=== PATIENT | male | born 1960 | race Caucasian/White ===

== ENCOUNTER → 2018-10-24 09:54 | Outpatient (CLI) | payer MEDICARE, SELFPAY ==
--- NOTE | 2018-10-24 10:20 | MRI_ITS ---
STUDY: MRI LEFT ANKLE WITHOUT CONTRAST REASON FOR EXAM: Left ankle pain, anterior ankle lump for 2 months, aspiration 2 weeks ago. TECHNIQUE: Standardized fat and water weighted pulse sequences were obtained in all 3 orthogonal planes. COMPARISON: None. FINDINGS: There is a soft tissue mass in the subcutis adipose space at the anterior medial aspect of the ankle measuring approximately 2.9 x 2.1 x 5.4 cm (AP x transverse x length). The mass is mostly intermediate in signal intensity on T1 sequences (T1 sagittal images 4-8) and demonstrates a thick wall on T2 sequences with hyperintense and hypointense central signal on T2 sequences (T2 axial images 11-16). There is mild edema in the adjacent subcutis adipose space. Normal posterior tibialis tendon. Normal flexor digitorum longus tendon. Normal flexor hallucis longus tendon. Normal peroneus longus and brevis tendons. Normal tibialis anterior tendon. Normal extensor hallucis longus tendon. Normal extensor digitorum longus tendons. Normal Achilles tendon and teno-osseous insertion. Normal plantar fascia. Normal plantar calcaneal tubercles. Normal intrinsic muscles of the rearfoot. Normal distal tibiofibular syndesmotic ligamentous complex. Normal lateral ligamentous complex. Normal subtalar ligaments and sinus tarsi. Normal deltoid ligamentous complexes. Normal plantar calcaneonavicular (spring) ligament. There is mild subchondral cystic change of the posterior aspect of the distal tibia (inversion recovery sagittal images 11-13). Normal talar dome. Normal subtalar articulations. Normal talonavicular articulation. Normal calcaneocuboid articulation. Normal navicular-cuneiform articulations. MRI/Lower Ext Joint Only (Routine) IMPRESSION: Soft tissue mass with a thick rim in the subcutis adipose space at the anteromedial aspect of the ankle without specific imaging characteristics. Electronically Signed: Nicko Suarez MD at 14:34 EDT Tel , Service support ,
[2018-10-24 11:03] LABS: Erythrocyte Sedimentation Rate 32 mm/hr (0-20)
[2018-10-24 11:06] LABS: Absolute Lymphocyte Count 1.34 X10^3/uL (0.83-4.51); Basophil# 0.03 X10^3/uL; Basophil% 0.6 % (0-1); Eosinophil# 0.18 X10^3/uL; Eosinophils% 3.6 % (0-5); Hematocrit 41.1 % (40-54); Hemoglobin 13.1 g/dL (13.0-16.5); Lymphocyte # 1.34 X10^3/ul (4.0); Mean Corp Hgb Conc 31.9 g/dL (32-36); Mean Corpuscular Hgb 26.2 pg (27.0-32.0); Mean Corpuscular Volume 82.2 fL (80-94); Mean Platelet Vol. 9.5 fl (6.2-12.0); Monocyte# 0.41 X10^3/uL; Monocyte% 8.2 % (0-10); NRBC Flagged by Analyzer 0 % (0-5); Neutrophil # 2.99 X10^3/uL (2.7-7.7); Neutrophil % 60.2 % (47-70); Platelet Count 245 K/mm3 (150-450); RBC Distribution Width CV 13.2 % (11.6-14.6); RBC Distribution Width SD 39.8 fl (35.1-43.9)
[2018-10-24 11:31] LABS: CRP 6.64 mg/L (0.0-3.0)
== END ==
PROVIDERS: Family Provider Internal Medicine; PCP Internal Medicine; Referring Provider Orthopaedic Surgery; Visit Provider Orthopaedic Surgery
DX: M25.572 Pain in left ankle and joints of left foot (principal)
CPT/HCPCS: 36415; 73721; 85025; 85652; 86140

== ENCOUNTER 2021-04-14 17:45 | Inpatient (IN) | payer MEDICARE, SELFPAY ==
[2021-04-14 18:12] VITALS: BP 177/75; PULSE 84; RESP 18; TEMP 36.9; O2SAT 92; BMI 33.9
[2021-04-14] MEDS: Heparin Injection (Vial) 5,000 UNIT/ML VIAL 5000 UNIT SC (21:02)
[2021-04-14] MEDS: Gabapentin 300 MG Capsule PO (21:03)
[2021-04-14] MEDS: Atorvastatin Calcium 80 MG Tablet PO (21:04)
[2021-04-14 21:12] VITALS: BP 159/86; PULSE 86; RESP 16; TEMP 36.1; O2SAT 98
[2021-04-14 21:30] VITALS: O2SAT 98
[2021-04-14 21:45] VITALS: BMI 33.9
[2021-04-14 22:00] VITALS: PULSE 82; RESP 17; O2SAT 96
--- NOTE | 2021-04-15 03:42 | NURSING ---
Pt resting comfortably in room and oriented to Rehab Routine. Pt has congenital malformed left leg and prosthesis in room. Pt has wallet with money and advised by RN to return wallet to family while here.
[2021-04-15 06:00] VITALS: BP 142/88; BP 148/83; BP 170/93; PULSE 82; PULSE 83; PULSE 93
[2021-04-15 07:43] VITALS: BP 156/89; PULSE 79; RESP 16; TEMP 36.7; O2SAT 96
[2021-04-15] MEDS: Clopidogrel Bisulfate 75 MG Tablet PO (08:09)
[2021-04-15] MEDS: Aspirin 81 MG TAB.CHEW PO (08:09)
[2021-04-15] MEDS: Lisinopril 10 MG Tablet PO (08:09)
[2021-04-15] MEDS: Heparin Injection (Vial) 5,000 UNIT/ML VIAL 5000 UNIT SC (08:09)
--- NOTE | 2021-04-15 11:59 | HP.PCM_ITS ---
HPI - General General Date of Admission: 04/14/21 Date of Service: 04/15/21 Chief Complaint: Debility due to CVA. 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 the sx resolved and he went to meet a friend. At about 6 PM he noticed that he was slurring his speech. He decided to go the the ED and arrived at about 8 PM. He had a R facial droop and slurred speech upon arrival and the NIHSS was 1. BP at arrival to the ED was 204/115. A NC CT brain showed no acute findings. He was admitted to the hospital for observation. Overnight the sx progressed and he developed weakness again in the RUE. the neurologist recommended loading him with Plavix and obtaining an MRI. The MRI showed a small acute infarct in the left flores radiata extending slightly the left external capsule and lentiform nuclei. There was also a chronic lacunar infarct involving the left caudate head. Significant lab at [facility] included a low HGB of 12.1 with a low MCV at 78. The LDL was 109 and the HDL was 50. TRIG were 119. He was seen in consultation by PT/OT and ST and transfer to an acute inpat rehab unit was recommended. He was agreeable and he was transferred to the acute inpt rehab unit at [facility] on 04/14/21 for 3 hours of therapy daily to restore function at or near his prior level of function. He is a and he lives by himself. He has a step daughter who lives in [place] and he has no children of his own. ECHO at [facility] showed an EF of 55-60% with no regional wall motion abnormalities. The LA was mildly dilated and the bubble study was negative. there was impaired relaxation of the ventricle in diastole. Carotid US showed less than 50% stenosis in the proximal BL ICA's. [facility] Medical History (Updated 04/15/21 @ 15:[address] Puja Marie DO) Congenital deformity of left hip joint Fracture, clavicle Hypertension Lacunar infarction Obesity (BMI 30.0-34.9) Stroke/cerebrovascular accident Tobacco dependence due to cigarettes, in remission Villous adenoma Home Medications gabapentin 300 mg PO QHS 04/09/15 [History Last Taken Unknown] acetaminophen 650 mg PO Q4H PRN 04/14/21 [History Last Taken Unknown] aspirin 81 mg PO DAILY 04/14/21 [History Last Taken Unknown] atorvastatin 80 mg PO QHS 04/14/21 [History Last Taken Unknown] clopidogrel [Plavix] 75 mg PO DAILY 04/14/21 [History Last Taken Unknown] heparin (porcine) 5,000 unit SUBCUT Q12H 04/14/21 [History Last Taken Unknown] lisinopril 10 mg PO DAILY 04/14/21 [History Last Taken Unknown] Allergy/AdvReac Type Severity Reaction Status Date / Time amoxicillin trihydrate Allergy Hives Verified 04/09/15 14:15 [From Augmentin] potassium clavulanate Allergy Hives Verified 04/09/15 14:15 [From Augmentin] Family History (Updated 04/15/21 @ 15:[address] Puja Marie DO) Father Cancer CAD (coronary artery disease) Uncle Cancer Brother CVA (cerebral vascular accident) Mother CAD (coronary artery disease) Surgical History (Updated 04/15/21 @ 15:[address] Puja Marie DO) History of bowel resection History of rotator cuff surgery Social History (Updated 04/15/21 @ 15:[address] Puja Marie DO) household members: none and other details: lives alone. 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 1 PPD. alcohol intake: current alcohol intake frequency: a few times a week details: he gets a 12 pack of beer a week and shares with friends substance use type: does not use ROS Constitutional Constitutional: Reports fatigue and weakness; Denies anorexia, change in weight, chills, fever(s) or night sweats Eyes Eyes: Reports change in vision and other Details: Recently has noticed he has some floaters. Denies any loss of vision. ; Denies double vision, eye pain, itchy eyes or loss of vision ENT HEENT: Reports nasal congestion and other Details: has trouble chewing since the stroke ; Denies abnormal hearing, dysphagia, headache(s), hearing loss or sore throat Cardiovascular Cardiovascular: Reports palpitations; Denies chest pain, dyspnea on exertion, edema, lightheadedness, orthopnea, paroxysmal nocturnal dyspnea or syncope Respiratory/Chest Respiratory/Chest: Denies cough, dyspnea, hemoptysis, shortness of breath at rest, shortness of breath with exertion or wheezing Gastrointestinal Gastrointestinal: Denies abdominal pain, constipation, diarrhea, dyspepsia, hematemesis, hematochezia, nausea or vomiting Genitourinary Genitourinary: Denies dysuria, hematuria, nocturia, urinary frequency, urinary hesitancy, urinary incontinence or urinary urgency Musculoskeletal Musculoskeletal: Reports other Details: R shoulder pain ; Denies back pain, joint pain, joint swelling or neck pain Integumentary Integumentary: Reports dry skin; Denies jaundice, rash or wounds Neurologic Neurologic: Reports abnormal gait, dizziness and focal weakness; Denies confusion, disequilibrium, headache(s), paresthesias, seizures, sensory deficit or tremor(s) Psychiatric Psychiatric: Denies anxiety, depression, homicidal ideation or suicidal ideation Endocrine Endocrinology: Denies change in body appearance, polydipsia or polyuria Hematologic/Lymphatic Hematologic/Lymphatic: Denies easy bleeding, easy bruising or lymphadenopathy Allergic/Immunologic Allergic/Immunologic: Denies rhinitis, eczemia or asthma Vital Signs Vital Signs Vital Signs: 04/14/21 18:12 04/14/21 21:12 04/14/21 21:30 Temperature 98.4 F 97.0 F L Temperature Source Oral Oral Pulse Rate 84 86 Pulse Rate [Lying] Pulse Rate [Sitting (for 1 minute prior to obtaining)] Pulse Rate [Standing (for 1 minute prior to obtaining)] Respiratory Rate 18 16 Respiratory Effort Respiratory Depth Respiratory Pattern Blood Pressure 177/75 H 159/86 H Blood Pressure [Lying] Blood Pressure [Sitting (for 1 minute prior to obtaining)] Blood Pressure [Standing (for 1 minute prior to obtaining)] Blood Pressure Mean 109 110 Blood Pressure Mean [Lying] Blood Pressure Mean [Sitting (for 1 minute prior to obtaining)] Blood Pressure Mean [Standing (for 1 minute prior to obtaining)] Blood Pressure Source Monitor Monitor Blood Pressure Position Sitting Sitting Blood Pressure Location Left Arm Left Arm Pulse Ox 92 98 98 Oxygen Delivery Method Room Air Room Air Room Air 04/14/21 22:00 04/15/21 06:00 04/15/21 07:43 Temperature 98.0 F Temperature Source Temporal Pulse Rate 82 79 Pulse Rate [Lying] 83 Pulse Rate [Sitting (for 1 minute prior to obtaining)] 82 Pulse Rate [Standing (for 1 minute prior to obtaining)] 93 Respiratory Rate 17 16 Respiratory Effort Normal Non-Labored Respiratory Depth Normal Respiratory Pattern Normal Blood Pressure 156/89 H Blood Pressure [Lying] 148/83 H Blood Pressure [Sitting (for 1 minute prior to obtaining)] 142/88 H Blood Pressure [Standing (for 1 minute prior to obtaining)] 170/93 H Blood Pressure Mean 111 Blood Pressure Mean [Lying] 104 Blood Pressure Mean [Sitting (for 1 minute prior to obtaining)] 106 Blood Pressure Mean [Standing (for 1 minute prior to obtaining)] 118 Blood Pressure Source Monitor Blood Pressure Position Semi-Fowlers Blood Pressure Location Left Arm Pulse Ox 96 96 Oxygen Delivery Method Room Air Room Air Weight Weight: 210 lb Body Mass Index (BMI) 33.9 Indicators for Scoring Admitted with or Primary Diagnosis of CVA/Stroke: Yes Hx of CVA/Stroke: Yes Modified [place] Score MRS Score at time of Evaluation: 4-Moderate/severe disability NIHSS NIHSS 1a. Level of Consciousness: Alert; keenly responsive 1b. LOC Questions: Answers BOTH questions correctly. 1c. LOC Commands: Performs both tasks correctly. 2. Best Gaze: Normal 3. Visual: No visual loss 4. Facial Palsy: Minor paralysis (flattened nasolabial fold, asymmetry on smiling) 5a. Left Arm: No drift; arm holds 90 (or 45) degrees for full 10 seconds 5b. Right Arm: No movement 6a. Left Leg: No drift; leg holds 30-degree position for full 5 seconds 6b. Right Leg: Drift; leg falls by the end of 5-seconds, but does not hit bed 7. Limb Ataxia: Absent 8. Sensory: Normal; no sensory loss (Having trouble finding words) 9. Best Language: [id number] aphasia; (having some trouble with word finding) 10. Dysarthria: [id number] dysarthria; 11. Extinction and Inattention: No abnormality Total: 8 Stroke Questions Stroke Team Activated: No Physical Exam Const alert, oriented x3, no apparent distress and well nourished General Appearance: cooperative and well developed HEENT normocephalic, head/scalp atraumatic, hearing grossly normal bilaterally and moist oral mucous membranes Eyes PERRL, EOMs intact bilaterally, conjunctivae normal and no scleral icterus Neck supple, no JVD, No nodes and no carotid bruits General: trachea midline Lymph Lymphatic: no lymphadenopathy noted Resp normal respiratory effort and clear to auscultation bilaterally Resp Narrative: able to speak in complete sentences Cardio regular rate, regular rhythm, S1 normal heart sound, S2 normal heart sound, no murmurs, no rub and no gallops Cardio Narrative: no ectopy GI normal to inspection, nondistended, normoactive bowel sounds, soft to palpation and non-tender GI Narrative: no guarding with palpation Extremity no clubbing, cyanosis or edema and no calf tenderness Extremity Narrative: The Left leg is atrophied and short due to congenital deformity and he wears a prosthesis Skin General Skin Exam: Negative for no breakdown Rashes: No rashes noted Wounds: Negative for wounds noted Neuro Neuro Narrative: See the NIHSS. R facial droop, no movement of the RUE and drift with the RLE. No sensory loss and no ataxia. Dysarthria is mild and he has occasional trouble with word finding. Psych thought process normal, cooperative, affect normal, denies homicidal ideation and denies suicidal ideation Psych Narrative: He denies feeling depressed although the therapists told me that he was crying when talking about his 's passing with them......he did not cry with me. Tells me he is occasionally anxious when he is thinking about a problem he is trying to work out and maybe he has trouble sleeping 1 night a week because of this. Has never been treated for depression. Has take Klonopin for sleep in the past. Appearance: appropriate Assessment & Plan Assessment/Plan (1) Physical debility: (2) Stroke/cerebrovascular accident: (3) Facial droop: (4) Cognitive dysfunction: (5) Right hemiparesis: (6) Microcytic anemia: (7) Dyslipidemia: (8) Hypertension: (9) Glucose intolerance (impaired glucose tolerance): (10) Obesity (BMI 30.0-34.9): (11) Diastolic dysfunction: PLAN: PLAN PT for gait stability OT for ADL's ST for evaluation Analgesics as needed Bowel protocol Fall precautions Assess for Anxiety/Depression GI prophylaxis not necessary......no complaints and no hx of PUD DVT prophylaxis with Lovenox 40 mg subcu once daily Follow up with Dr. Byrne and neurology following DC from IP Rehab AM lab including CMP, CBC, Mag and Phos is just now being drawn? Iron, TIBC, ferritin Overnight trending pulse ox. Multiple RF's for HADLEY including neck circumference of 42 cm, HTN, Age > 50, male. His in 2012 and he lives alone so he does not know if he snores. Obtain a problem list, med list and the last progress note from Dr. Jenny Byrne Check a Hemoccult stool - he tells me that his last colonoscopy was a few years ago and he has never had any polyps on any of the follow up procedures. He denies any hx of PUD. Charges/Coding Visit Charges Inpatient E&M: 96025 Init Hosp L3
--- NOTE | 2021-04-15 12:02 | REHABEVAL_ITS ---
Admission Information Primary Diagnosis:: Post stroke debility Status Changes from Prescreening?: No changes Identified Actual Problem List:: Cognitve Impr/Memory Loss, Bladder Incontinence, Mobility Impaired, Self Care Deficit, Ineffective Communication, Know.Dfct/Disease Process, Know.Dfct of Medicaitons, BP, Hypertension and Alteration-Leisure Activ. Potential Problem List:: DVT, Bleeding, Infection, UTI, Aspiration, Falls, Skin Integrity and Depression Risk of Complications DVT: LMWH and GLADYS Hose Bleeding: Monitor Lab Values, Nursing to Teach Precautions for anti-coagulation therapy., Wound, if applicable, to be assessed every shift. and Stroke patients assessed for lethargy or change in status. Infection: Clinical Staff to Monitor for S/S of infection: and S/S of infection include fever, redness, warmth, etc. Urinary Tract Infection: Monitor for frequency, burning, discomfort, or incontinence. and Nursing will obtain urine sample for urinalysis and C&S when ordered. Aspiration: Clinical staff will monitor for coughing, drooling, congestion., Speech will evaluate swallowing and dsyphasia. and Nursing will monitor patient swallowing during meals. Falls: Patient will be evaluated for Fall Precautions and Patient will be placed on Fall Precautions as indicated per protocol. Skin Breakdown: Nursing will assess skin daily using assessment tool. and Nursing will place on Skin Breakdown Precautions as indicated. Pain: Clinical staff will assess patient's pain level per protocol., Medications will be given, if needed, and the pain level reassessed. and Other methods: Massage, distraction, decrease stimulus, etc. used PRN. Plan of Care Patient requires physician specializing in physical medicine and rehab oversight to provide close medical supervision of rehab issues including: Pain Management, Sleep Problems, Bowel and Bladder, Medical and co-morbidity Management, DVT prophylaxis, Rehabilitation Leadership and Coordination of treatment team Patient needs Physical Therapy: For a minimum of 1 hour and At least 5 out of 7 days Patient needs Physical Therapy to improve:: Mobility, Strengthening, Transfers, Stretching, ROM, Endurance, Stairs, Gait and Balance Patient needs Occupational Therapy: For a minimum of 1 hour and At least 5 out of 7 days Patient needs Occupational Therapy to improve ADL's incl.: Eating, Grooming, Bathing, Dressing, Toileting, Toilet transfers, Community Reintegration, Higher functioning activities, Household tasks, Adaptive Equipment, Splinting and Other activities as determined Patient requires speech therapy: For a minimum of 1 hour and At least 5 out of 7 days Patient requires speech therapy for: Swallowing, Cognition, Language Skills and Compensatory Strategies Patient requires 24/ Rehabilitation Nursing for: Pain Issues, Identifying and preventing risk factors, Monitoring and reporting current medical conditions, Assisting with ambulation, transfer, and all ADL's, Teaching patients about disease process and medications, Family teaching, Providing safe environment, Bowel and Bladder Issues, Skin integrity and Medication Management Patient needs Aircraft Engine Cylinder Mechanic/ Case Management for: Discharge Planning, Arranging Home Equipment or Services and Family Interventions Patient needs Dietary and Nutrition Services for: Adequate Nutrition, Nutritional Supplements and Nutritional Education Goals Patient will remain: free from falls Patient will perform bed mobility at: MOD I level of assist. Patient will complete transfers from bed to chair at: MOD I level of assist. Patient will ambulate: 100 feet (with a hemiwalker ) Patient will complete upper body dressing at: MOD I level of assist. Patient will complete lower body dressing at: MOD I level of assist. Patient will complete toileting at: MOD I level of assist. Patient will perform bathing at: MOD I level of assist. Patient will complete grooming at: MOD I level of assist. Patient will complete home management skills at: MOD I level of assist. Patient will achieve: - (2 steps to be able to enter his residence) Patient will have pain level of: of 3 or less Patient's skin will: remain intact Patient will receive: adequate nutrition. Discharge Planning Pt Prognosis for Sig. Practical Improv. w/in Reasonable Time: Good Estimated Length of stay (days): 8 Anticipated D/C Destination: Home with Home Health Was Preadmission Assessment Accurate?: Yes
[2021-04-15] MEDS: Menthol/Lanolin/Calamine/Znox 113 GM Tube 1 APPLIC TOPICAL (12:48)
[2021-04-15 15:02] VITALS: BMI 33.9
[2021-04-15 16:02] LABS: Absolute Lymphocyte Count 1.32 X10^3/uL (0.83-4.51); Basophil# 0.03 X10^3/uL; Basophil% 0.5 % (0-1); Eosinophil# 0.14 X10^3/uL; Eosinophils% 2.3 % (0-5); Hematocrit 39.2 % (40-54); Hemoglobin 12.8 g/dL (13.0-16.5); Lymphocyte # 1.32 X10^3/ul (0.83-4.51); Lymphocyte % 21.4 % (19-41); Mean Corp Hgb Conc 32.7 g/dL (32-36); Mean Corpuscular Hgb 26.4 pg (27.0-32.0); Mean Platelet Vol. 9.7 fl (6.2-12.0); Monocyte# 0.68 X10^3/uL; NRBC Flagged by Analyzer 0 % (0-5); Neutrophil # 3.98 X10^3/uL (2.7-7.7); Neutrophil % 64.3 % (47-70); Platelet Count 177 K/mm3 (150-450); RBC Distribution Width CV 13.7 % (11.6-14.6); RBC Distribution Width SD 40.2 fl (35.1-43.9); Red Blood Count 4.84 M/mm3 (4.6-6.2); White Blood Count 6.2 K/mm3 (4.4-11.0)
[2021-04-15 16:36] LABS: ALB/GLOB Ratio 1.1 RATIO (0.9-2.4); AST(SGOT) 35 U/L (15-37); Alanine Aminotransfer ALT/SGPT 45 U/L (16-61); Albumin, Serum 3.4 g/dL (3.2-5.0); Alkaline Phosphatase 84 U/L (45-117); Anion Gap 3 (5-15); BUN 17 mg/dL (7-18); BUN/Creat Ratio 24.3 RATIO (10-20); Calcium,Total 9.1 mg/dL (8.5-10.1); Chloride 110 mmol/L (98-107); EST Glomerular Filtration Rate 122 mL/min (>60); Est Glom Filt Rate - Afr Amer 147 mL/min (>60); Globulin 3.2 g/dL (2.2-4.2); Glucose 107 mg/dL (74-106); Magnesium 1.8 mg/dL (1.6-2.6); Phosphorus 3.9 mg/dL (2.5-4.9); Potassium 3.6 mmol/L (3.5-5.1); Protein, Total 6.6 g/dL (6.4-8.2); Sodium Level 141 mmol/L (136-145)
[2021-04-15 17:08] LABS: Ferritin 14 ng/mL (26-388); Iron 40 ug/dL (65-175); Iron Binding Capacity,Total 408 ug/dL (250-450); PERCENT IRON SATURATION 9.8 % (15.0-55.0)
[2021-04-15] MEDS: Atorvastatin Calcium 80 MG Tablet PO (20:43)
[2021-04-15] MEDS: Gabapentin 300 MG Capsule PO (20:43)
[2021-04-15] MEDS: Sodium Chloride 0.65% 1 SPRAY SPRAY.BTL 2 SPRAY NASAL (20:46)
[2021-04-15] MEDS: NYSTATIN 500,000 UNIT/5 ML UDC 500000 UNIT PO (20:59)
[2021-04-15 22:00] VITALS: BP 164/84; PULSE 98; RESP 16; TEMP 36.6; O2SAT 94
[2021-04-15 22:15] VITALS: O2SAT 95
[2021-04-15 22:55] VITALS: BMI 33.9
[2021-04-16 07:49] VITALS: BP 105/86; PULSE 81; RESP 16; TEMP 36.7; O2SAT 96
[2021-04-16 09:25] VITALS: O2SAT 93
[2021-04-16] MEDS: Senna/Docusate Sodium 1 Tablet 2 TABLET PO (09:29)
[2021-04-16] MEDS: Lisinopril 10 MG Tablet PO (09:30)
[2021-04-16] MEDS: Clopidogrel Bisulfate 75 MG Tablet PO (09:30)
[2021-04-16] MEDS: Aspirin 81 MG TAB.CHEW PO (09:30)
[2021-04-16] MEDS: NYSTATIN 500,000 UNIT/5 ML UDC 500000 UNIT PO ×2 (09:30→20:53)
[2021-04-16] MEDS: Enoxaparin 40 MG/0.4 ML Syringe SC (09:30)
[2021-04-16] MEDS: Menthol/Lanolin/Calamine/Znox 113 GM Tube 1 APPLIC TOPICAL ×2 (10:42→20:40)
[2021-04-16 12:25] VITALS: BMI 33.9
--- NOTE | 2021-04-16 14:24 | CASEMGMT ---
Social Work Met with patient for initial assessment. Pt confirmed full code. Pt wishes to have dtr be primary contact and involved in updates and DC plans. Pt would to complete AD to name dtr as HCPOA. SW to complete prior to DC as time allows. Pt reports this is his first stroke, but his brother has had two strokes prior. Pt states he drove himself to the hospital when having symptoms. Provided and explained stroke support group brochure and ongoing education provided at those meetings, such as calling 911 when have stroke symptoms. Pt agreed to be added to mailing list. Pt reports drinking 6-12 beers/week which is a decrease from detention a few years ago. pt reports drinking socially or alone at home mostly to heal his body pain. Pt reports to hx of tobacco and tried edible marijuana twice. Completed PHQ-9. Pt scored 11/27 which indicates mild depression. Explained mood changes and being tearful are common after a stroke and to express any changes to this worker or the Dr. Pt denied depression and alcohol resources at this time. Updated Dr on findings. Pt's goal is for pt to return home alone. He stressed his dtr works coater hand and lives about 30-40 minutes away and has no assistance in the home. If he cannot go home independently, he will need a SNF, but hoping to regain strength in RU then home. SW validated feelings and agreed to goals. SW to continue to follow for support and DC planning. Anne-Marie Ponce, DARNELL DIAMONDW
--- NOTE | 2021-04-16 15:03 | PCM.PROGNOTE ---
Subjective Subjective Afebrile VSS - BP's are erratic high last night and then 105/86 this morning. Will continue to monitor and in light of the recent CVA will allow mild elevations in BP for now. Maintaining appropriate oxygen saturation on RA Oral intake was only 840 yesterday. Discussed with nursing - no problems that need addressed - I spoke with the SW who told me that he was an alcoholic. He denies to me. Tells me he used to drink a lot more in his younger days but now he does not drink everyday and he only occasionally drinks alone at home. He denies drinking to go to sleep. Reviewed the PT/OT/ST notes Medication list reviewed. Tells me that he did not sleep very well last night and he is requesting medication. Tells me that the trazodone he got at the previous hospital only worked the first night and did not help after that. He takes Klonopin on occasion at home .......only if he has not slept for 3-4 nights in a row. He is also c/o reflux today...after pasta with sauce at lunch. He has been taking Prevacid at home for the past few years. He denies odynophagia and does not feel as though food gets stuck on the way down. He denies epigastric pain and also denies any hx of PUD. He started drinking a lot of coffee not too long ago in an effort to lose weight....he gave up drinking soda. He denies CP, SOB, calf pain, cough, dysuria, lightheadedness. All lab was personally reviewed and he is iron deficient. The heme stool was negative. He tells me that he regularly gives blood and the last time (less than 2 months ago) he gave a powerpak. With the Prevacid everyday he may not be able to absorb the iron in his diet. Objective Data Objective Data Vital Signs: Vital Signs Temp Pulse Resp BP Pulse Ox 98.1 F 81 16 105/86 H 93 04/16/21 07:49 04/16/21 07:49 04/16/21 07:49 04/16/21 07:49 04/16/21 09:25 Oxygen Delivery Method Room Air Weight: 209 lb 15.986 oz Body Mass Index (BMI) 33.9 Intake & Output: Intake and Output for Last 24 Hours 04/14/21 04/15/21 04/16/21 23:59 23:59 23:59 Intake Total 240 / 240 840 / 840 510 / 510 Output Total 250 / 450 1775 / 1775 550 / 550 Balance -10 / -210 -935 / -935 -40 / -40 Lab / Micro Data Result Diagrams: 04/15/21 15:50 04/15/21 15:50 Labs: Laboratory Results - last 24 hr 04/15/21 15:50: WBC 6.2, RBC 4.84, Hgb 12.8 L, Hct 39.2 L, MCV 81.0, MCH 26.4 L, MCHC 32.7, RDW Std Deviation 40.2, RDW Coeff of Mazin 13.7, Plt Count 177, MPV 9.7, Immature Gran % (Auto) 0.500, Neut % (Auto) 64.3, Lymph % (Auto) 21.4, Morris % (Auto) 11.0 H, Eos % (Auto) 2.3, Baso % (Auto) 0.5, Absolute Neuts (auto) 4.0, Absolute Lymphs (auto) 1.32, Nucleated RBC % 0 04/15/21 15:50: Sodium 141, Potassium 3.6, Chloride 110 H, Carbon Dioxide 28.0, Anion Gap 3 L, BUN 17, Creatinine 0.70, Estim Creat Clear Calc 100.00, Est GFR (MDRD) Af Amer 147, Est GFR (MDRD) Non-Af 122, BUN/Creatinine Ratio 24.3 H, Glucose 107 H, Calcium 9.1, Phosphorus 3.9, Magnesium 1.8, Total Bilirubin 0.30, AST 35, ALT 45, Alkaline Phosphatase 84, Total Protein 6.6, Albumin 3.4, Globulin 3.2, Albumin/Globulin Ratio 1.1 04/15/21 15:50: Iron 40 L, TIBC 408, Iron Saturation 9.8 L, Ferritin 14 L Micro: Microbiology 04/16/21 08:00 Stool Stool Occult Blood (FAVIOLA) - Final Physical Exam Const alert, oriented x3 and no apparent distress General Appearance: cooperative Resp normal respiratory effort and clear to auscultation bilaterally Cardio regular rate, regular rhythm and no gallops GI normal to inspection, nondistended, normoactive bowel sounds, soft to palpation and non-tender Extremity General Extremity: Negative for edema Skin General Skin Exam: no breakdown Rashes: no rashes Wounds: Negative for wounds noted Neuro Neuro Narrative: Speech is more slurred today to me......he was more focused on enunciating yesterday. No movement of the RUE. Psych affect normal Assessment & Plan Assessment/Plan (1) Right hemiparesis: (2) Cognitive dysfunction: (3) Facial droop: (4) Dysarthria: (5) Iron deficiency anemia: (6) Hypertension: (7) Stroke/cerebrovascular accident: (8) Insomnia: PLAN: 1. I recommend he DC caffeine. Will start Protonix 20 mg BID. 2. Add Hydralazine 10 mg every 4 hours as needed for sys> 160 or diastolic > 90 3. Ambien 5 mg PRN at HS for insomnia 4. with the ? alcohol intake and the hx of a previous lacunar infarct will need to get a 30 day event monitor at [place]......with ETOH and lots of caffeine he may be having PAF. since this is his second CVA will recommend he maintain an LDL <50. 5. Start ferrous sulfate and give it with Ascorbic acid to help with absorption since he is chronically on a PPI. 6. Recommend he limit his beer to no more than 1 a day. He tells me that he does not feel ETOH is a problem for him at this point in his life.....it was when he was younger. 7. Continue therapy Charges/Coding Visit Charges Inpatient E&M: 50788 Subs Hosp L2
[2021-04-16] MEDS: Pantoprazole Sodium 20 MG Tablet PO ×2 (17:04→20:38)
[2021-04-16 19:25] VITALS: BP 135/74; PULSE 87; RESP 18; TEMP 36.1; O2SAT 96
[2021-04-16] MEDS: Atorvastatin Calcium 80 MG Tablet PO (20:39)
[2021-04-16] MEDS: Gabapentin 300 MG Capsule PO (20:39)
[2021-04-16] MEDS: Sodium Chloride 0.65% 1 SPRAY SPRAY.BTL 2 SPRAY NASAL (20:44)
[2021-04-16] MEDS: Zolpidem Tartrate 5 MG Tablet PO (21:49)
[2021-04-17] MEDS: Enoxaparin 40 MG/0.4 ML Syringe SC (06:06)
[2021-04-17 07:43] VITALS: BP 137/78; PULSE 81; RESP 20; TEMP 36.6; O2SAT 94
[2021-04-17] MEDS: NYSTATIN 500,000 UNIT/5 ML UDC 500000 UNIT PO ×2 (08:12→21:05)
[2021-04-17] MEDS: Lisinopril 10 MG Tablet PO (08:13)
[2021-04-17] MEDS: Pantoprazole Sodium 20 MG Tablet PO ×2 (08:13→21:05)
[2021-04-17] MEDS: Clopidogrel Bisulfate 75 MG Tablet PO (08:13)
[2021-04-17] MEDS: Aspirin 81 MG TAB.CHEW PO (08:13)
[2021-04-17] MEDS: Menthol/Lanolin/Calamine/Znox 113 GM Tube 1 APPLIC TOPICAL ×2 (08:22→21:06)
[2021-04-17] MEDS: Ferrous Sulfate 325 MG Tablet PO (12:02)
[2021-04-17] MEDS: Ascorbic Acid 500 MG Tablet 1000 MG PO (12:02)
[2021-04-17 13:40] VITALS: BMI 33.9
[2021-04-17 19:25] VITALS: BP 152/87; PULSE 86; RESP 16; TEMP 37.1; O2SAT 93
[2021-04-17] MEDS: Gabapentin 300 MG Capsule PO (21:05)
[2021-04-17] MEDS: Atorvastatin Calcium 80 MG Tablet PO (21:05)
[2021-04-17] MEDS: Zolpidem Tartrate 5 MG Tablet PO (21:34)
[2021-04-17 21:38] VITALS: BMI 33.9
[2021-04-17 22:00] VITALS: PULSE 84; RESP 16; O2SAT 94
[2021-04-18] MEDS: Enoxaparin 40 MG/0.4 ML Syringe SC (06:16)
[2021-04-18 08:05] VITALS: BP 137/78; PULSE 77; RESP 16; TEMP 36.1; O2SAT 96
[2021-04-18] MEDS: Lisinopril 10 MG Tablet PO (08:13)
[2021-04-18] MEDS: NYSTATIN 500,000 UNIT/5 ML UDC 500000 UNIT PO ×2 (08:13→21:36)
[2021-04-18] MEDS: Pantoprazole Sodium 20 MG Tablet PO ×2 (08:13→21:36)
[2021-04-18] MEDS: Aspirin 81 MG TAB.CHEW PO (08:13)
[2021-04-18] MEDS: Clopidogrel Bisulfate 75 MG Tablet PO (08:13)
[2021-04-18] MEDS: Menthol/Lanolin/Calamine/Znox 113 GM Tube 1 APPLIC TOPICAL ×2 (08:14→21:36)
[2021-04-18] MEDS: Ascorbic Acid 500 MG Tablet 1000 MG PO (12:31)
[2021-04-18] MEDS: Ferrous Sulfate 325 MG Tablet PO (12:31)
[2021-04-18 16:07] VITALS: BMI 33.9
[2021-04-18 19:20] VITALS: BP 156/84; PULSE 82; RESP 18; TEMP 36.6; O2SAT 96
[2021-04-18] MEDS: Sodium Chloride 0.65% 1 SPRAY SPRAY.BTL 2 SPRAY NASAL (21:30)
[2021-04-18] MEDS: Atorvastatin Calcium 80 MG Tablet PO (21:36)
[2021-04-18] MEDS: Gabapentin 300 MG Capsule PO (21:36)
[2021-04-18 21:42] VITALS: BMI 33.9
[2021-04-18] MEDS: Zolpidem Tartrate 5 MG Tablet PO (21:49)
[2021-04-18 22:00] VITALS: PULSE 82; RESP 17; O2SAT 96
[2021-04-19] MEDS: Enoxaparin 40 MG/0.4 ML Syringe SC (06:03)
[2021-04-19] MEDS: Sodium Chloride 0.65% 1 SPRAY SPRAY.BTL 2 SPRAY NASAL ×2 (06:23→21:31)
[2021-04-19 07:15] VITALS: BP 131/77; PULSE 84; RESP 16; TEMP 36.3; O2SAT 93
[2021-04-19] MEDS: Aspirin 81 MG TAB.CHEW PO (07:40)
[2021-04-19] MEDS: Lisinopril 10 MG Tablet PO (07:41)
[2021-04-19] MEDS: Pantoprazole Sodium 20 MG Tablet PO ×2 (07:41→21:28)
[2021-04-19] MEDS: NYSTATIN 500,000 UNIT/5 ML UDC 500000 UNIT PO ×2 (07:41→21:29)
[2021-04-19] MEDS: Clopidogrel Bisulfate 75 MG Tablet PO (07:41)
[2021-04-19] MEDS: Senna/Docusate Sodium 1 Tablet 2 TABLET PO (07:42)
[2021-04-19] MEDS: Menthol/Lanolin/Calamine/Znox 113 GM Tube 1 APPLIC TOPICAL ×2 (07:43→21:31)
--- NOTE | 2021-04-19 10:02 | PCM.PROGNOTE ---
Subjective Subjective Jere was seen on team rounds today. His daughter Leandra participated by phone. Afebrile VSS-blood pressure at approximately 7 PM is consistently elevated. Last night the blood pressure was 156/84. Heart rate is within normal limits. Maintaining appropriate oxygen saturation on RA Oral intake is adequate No significant post void residuals Last bowel movement is today-nonformed Discussed with nursing - no problems that need addressed Reviewed the PT/OT/ST notes. Ambulated with a quad cane on Monday but had poor standing balance. Needing voice cues for proper placement of his left hand on the quad cane, safe returns and making sure that when transferring surfaces he is oriented prior to sitting. Medication list reviewed. Jere denies dysuria, chest pain, shortness of breath, nausea/vomiting/abdominal pain, palpitations, lightheadedness. The right calf is a little tender from trying to use the leg to assist with walking but no significant swelling or erythema. No warmth to touch. doing better with remembering to sweep the bolus of food to the left and sweep the mouth after swallowing once and then swallow again. No coughing with eating. He is sleeping well with the Ambien at night. Objective Data Objective Data Vital Signs: Vital Signs Temp Pulse Resp BP Pulse Ox 97.3 F L 84 16 131/77 H 93 04/19/21 07:15 04/19/21 07:15 04/19/21 07:15 04/19/21 07:15 04/19/21 07:15 Oxygen Delivery Method Room Air Weight: 209 lb 15.986 oz Body Mass Index (BMI) 33.9 Intake & Output: Intake and Output for Last 24 Hours 04/17/21 04/18/21 04/19/21 23:59 23:59 23:59 Intake Total 1440 / 1440 660 / 660 Output Total 1100 / 1100 Balance 340 / 340 660 / 660 Lab / Micro Data Result Diagrams: 04/15/21 15:50 04/15/21 15:50 Micro: Microbiology 04/16/21 08:00 Stool Stool Occult Blood (FAVIOLA) - Final Physical Exam Const alert, oriented x3 and no apparent distress General Appearance: cooperative HEENT normocephalic and hearing grossly normal bilaterally Eyes EOMs intact bilaterally, conjunctivae normal and no scleral icterus General Eye: normal appearance of both eyes Resp Resp Narrative: Initially had a few coarse crackles in both bases but, after a few deep breaths the crackles totally resolved. Effort and Inspection: able to speak in complete sentences Cardio regular rate, no murmurs and no gallops Cardio Narrative: No ectopy GI normal to inspection, nondistended, normoactive bowel sounds, soft to palpation and non-tender GI Narrative: No guarding with palpation Extremity no pedal edema Extremity Narrative: superficial pain with palpation no deep pain and no pain with dorsiflexion of the foot Skin General Skin Exam: no breakdown Rashes: no rashes Neuro Neuro Narrative: Less facial droop when smiling today. No trouble with word finding while I was conversing with him today. He can shrug the R shoulder and has some movement of the R elbow but, nothing distal to the R elbow yet. It was flaccid when he presented to the rehab unit. Psych mental status grossly normal, cooperative and affect normal Assessment & Plan Assessment/Plan (1) Insomnia: (2) Hypertension: (3) Iron deficiency anemia: (4) Dysarthria: (5) Right hemiparesis: (6) Cognitive dysfunction: (7) Physical debility: (8) Stroke/cerebrovascular accident: PLAN: 1. Increase the Lisinopril to 15 mg daily in the AM. Give an extra 5 mg now to add to the 10 he already took. 2. Has been taking the Ambien every night. 3. Continue to monitor closely. Goal is < 130/80. Avoid BP< 110 systolic 4. Continue therapy. He requested some exercises he could do in his room when he was not doing therapy. 5. Continue the iron and the ascorbic acid and check another H/H prior to DC. I suspect the iron deficiency is due to routine blood donation in a pt chronically on a PPI and likely not absorbing the iron from his diet 6. 30 day event monitor at [place] Charges/Coding Visit Charges Inpatient E&M: 30316 Subs Hosp L2
[2021-04-19] MEDS: Lisinopril 5 MG Tablet PO (10:57)
[2021-04-19] MEDS: Ferrous Sulfate 325 MG Tablet PO (12:51)
[2021-04-19] MEDS: Ascorbic Acid 500 MG Tablet 1000 MG PO (12:51)
[2021-04-19 13:17] VITALS: BMI 33.9
--- NOTE | 2021-04-19 13:34 | CASEMGMT ---
Social Work IDT met with patient and dtr via conference call for Team meeting. Discussed patient's progress in PT/OT/ST and nursing. Pt making progress. Explained [facility] insurance with NRD 04/20 and continued stay is not guaranteed. The goal is for pt to return home at [facility] [address]. Pt expressed if he is not independent he cannot return home because he has no assistance. Provided in network SNF list with quality and resource data. Explained pt would pay privately for room and board, but part B will cover therapies. If pt goes home, SW to order therapy and DME needs. SW to continue to follow. Anne-Marie Ponce, KIER HAND ABSORPTION PLANT OPERATOR
--- NOTE | 2021-04-19 16:10 | CASEMGMT ---
Social Work Completed healthcare POA paperwork for pt naming daughter, Leandra Yates. Original and copies provided to pt and copy placed on chart. Anne-Marie Ponce, AIRCRAFT SEAT UPHOLSTERER SENIOR DOT NET DEVELOPER
[2021-04-19 19:22] VITALS: BP 134/78; PULSE 83; RESP 16; TEMP 36.7; O2SAT 93
[2021-04-19] MEDS: Zolpidem Tartrate 5 MG Tablet PO (21:28)
[2021-04-19] MEDS: Atorvastatin Calcium 80 MG Tablet PO (21:29)
[2021-04-19] MEDS: Gabapentin 300 MG Capsule PO (21:29)
[2021-04-19 21:41] VITALS: BMI 33.9
[2021-04-19 22:00] VITALS: PULSE 79; RESP 16; O2SAT 95
[2021-04-20] MEDS: Enoxaparin 40 MG/0.4 ML Syringe SC (06:24)
[2021-04-20 07:24] VITALS: BP 148/77; PULSE 86; RESP 16; TEMP 36.7; O2SAT 94
[2021-04-20] MEDS: Clopidogrel Bisulfate 75 MG Tablet PO (07:54)
[2021-04-20] MEDS: Aspirin 81 MG TAB.CHEW PO (07:54)
[2021-04-20] MEDS: Pantoprazole Sodium 20 MG Tablet PO ×2 (07:54→21:44)
[2021-04-20] MEDS: Lisinopril 5 MG Tablet 15 MG PO (07:55)
[2021-04-20] MEDS: NYSTATIN 500,000 UNIT/5 ML UDC 500000 UNIT PO ×2 (07:56→21:44)
[2021-04-20] MEDS: Menthol/Lanolin/Calamine/Znox 113 GM Tube 1 APPLIC TOPICAL ×2 (07:56→21:43)
[2021-04-20] MEDS: Ferrous Sulfate 325 MG Tablet PO (12:21)
[2021-04-20] MEDS: Ascorbic Acid 500 MG Tablet 1000 MG PO (12:21)
--- NOTE | 2021-04-20 12:21 | PCM.PROGNOTE ---
Subjective Subjective Afebrile VSS Maintaining appropriate oxygen saturation on RA Oral intake is good Discussed with nursing - no problems that need addressed Reviewed the PT/OT/ST notes Medication list reviewed. No low BP's with the increase in Lisinopril to 15 mg. Denies lightheadedness. Good mood, very motivated and has been doing exercises in his room when he is not in therapy. No cough, no SOB, no CP, no calf pain today, no dysuria, no lightheadedness. Denies palpitations. Alert and oriented X 3. Thought process is normal. Still having some difficulties with the higher level executive functioning. doing well with the hemiwalker. Jennifer is still slow but he is getting more stable. Has movement of the elbow. OT did morning routine with him today. He is supervision/set-up for grooming. He required minimal assistance with bathing, was standby assist for upper body dressing and min assist with lower body dressing. He was contact-guard assist for toileting and tub/shower transfer. He stood to void today at close [facility]. Functional activity in the room this AM at [facility]. He is having some spasms in the RUE today and getting a little more movement in the R biceps today. Still needing Voice cues for proper positioning of the hemiwalker. Short strides and still with a step to gait. Lungs - CTA, not tachypneic, no conversational dyspnea. Abd - Soft, NT, ND, normal BS's no peripheral edema Impressions 1. post stroke debility. He had a remote lacunar infarct prior to this stroke that was discovered incidentally on CT/MRI. Needs a 30 day event monitor at [place]. Will continue therapy. He is doing well. He is young and lives by himself and must be able to function by himself prior to going home. Continue to work hard to reach his maximal goal of functional independence. Continue education about how to prevent another stroke, the goals of treatment, weight loss to help with the glucose intolerance and regular follow up with his PCP . Objective Data Objective Data Vital Signs: Vital Signs Temp Pulse Resp BP Pulse Ox 98.1 F 86 16 148/77 H 94 04/20/21 07:24 04/20/21 07:24 04/20/21 07:24 04/20/21 07:24 04/20/21 07:24 Oxygen Delivery Method Room Air Weight: 209 lb 15.986 oz Body Mass Index (BMI) 33.9 Intake & Output: Intake and Output for Last 24 Hours 04/18/21 04/19/21 04/20/21 23:59 23:59 23:59 Intake Total 660 / 660 300 / 300 Output Total 200 / 200 Balance 660 / 660 100 / 100 Lab / Micro Data Result Diagrams: 04/15/21 15:50 04/15/21 15:50 Micro: Microbiology 04/16/21 08:00 Stool Stool Occult Blood (FAVIOLA) - Final Charges/Coding Visit Charges Inpatient E&M: 53786 Subs Hosp L2
[2021-04-20 16:15] VITALS: BMI 33.9
--- NOTE | 2021-04-20 17:07 | CASEMGMT ---
Social Work Received call from dtr requesting [facility] SNF list. Provided list to pt for dtr to review during visit. DARNELL GregoryW
[2021-04-20 19:13] VITALS: BP 131/72; PULSE 95; RESP 18; TEMP 36.7; O2SAT 93
[2021-04-20 20:56] VITALS: BMI 33.9
[2021-04-20] MEDS: Gabapentin 300 MG Capsule PO (21:44)
[2021-04-20] MEDS: Atorvastatin Calcium 80 MG Tablet PO (21:44)
[2021-04-20 22:00] VITALS: PULSE 82; RESP 17; O2SAT 94
[2021-04-20] MEDS: Zolpidem Tartrate 5 MG Tablet PO (22:00)
[2021-04-21] MEDS: Enoxaparin 40 MG/0.4 ML Syringe SC (06:14)
[2021-04-21 08:08] VITALS: BP 141/77; PULSE 86; RESP 18; TEMP 36.9; O2SAT 96
[2021-04-21] MEDS: Aspirin 81 MG TAB.CHEW PO (08:39)
[2021-04-21] MEDS: Menthol/Lanolin/Calamine/Znox 113 GM Tube 1 APPLIC TOPICAL (08:39)
[2021-04-21] MEDS: Pantoprazole Sodium 20 MG Tablet PO ×2 (08:40→22:08)
[2021-04-21] MEDS: Clopidogrel Bisulfate 75 MG Tablet PO (08:40)
[2021-04-21] MEDS: NYSTATIN 500,000 UNIT/5 ML UDC 500000 UNIT PO ×2 (08:40→22:08)
[2021-04-21] MEDS: Lisinopril 5 MG Tablet 15 MG PO (09:51)
[2021-04-21] MEDS: Ascorbic Acid 500 MG Tablet 1000 MG PO (13:33)
[2021-04-21] MEDS: Ferrous Sulfate 325 MG Tablet PO (13:33)
[2021-04-21 14:45] VITALS: BMI 33.9
--- NOTE | 2021-04-21 16:20 | CASEMGMT ---
Social Work Updated pt that insurance approved with NRD 05/04. Will ReTeam. Anne-Marie Ponce, PETROLEUM PLANT OPERATOR DOOR REPAIRER BUS
[2021-04-21 19:07] VITALS: BP 153/80; PULSE 91; RESP 16; TEMP 36.8; O2SAT 92
[2021-04-21] MEDS: Zolpidem Tartrate 5 MG Tablet PO (22:08)
[2021-04-21] MEDS: Atorvastatin Calcium 80 MG Tablet PO (22:08)
[2021-04-21] MEDS: Gabapentin 300 MG Capsule PO (22:08)
[2021-04-22] MEDS: Enoxaparin 40 MG/0.4 ML Syringe SC (05:43)
[2021-04-22 07:10] VITALS: BP 129/69; PULSE 85; RESP 16; TEMP 36.7; O2SAT 95
[2021-04-22] MEDS: Lisinopril 5 MG Tablet 15 MG PO (08:53)
[2021-04-22] MEDS: Aspirin 81 MG TAB.CHEW PO (08:53)
[2021-04-22] MEDS: Pantoprazole Sodium 20 MG Tablet PO ×2 (08:54→20:19)
[2021-04-22] MEDS: Clopidogrel Bisulfate 75 MG Tablet PO (08:54)
[2021-04-22] MEDS: NYSTATIN 500,000 UNIT/5 ML UDC 500000 UNIT PO ×2 (08:55→20:19)
--- NOTE | 2021-04-22 09:22 | PCM.PROGNOTE ---
Subjective Subjective Afebrile VSS - systolic BP is very mildly elevated in the late afternoon. HR is WNL. Maintaining appropriate oxygen saturation on RA Oral intake is good. Discussed with nursing - He has a rash on his buttocks. Not sleeping as well as he would like at night. Reviewed the PT/OT/ST notes Medication list reviewed. He denies cephalgia, lightheadedness chest pain, shortness of breath, nausea/vomiting/abdominal pain, calf pain, dysuria, constipation/diarrhea. He tells me that the rash on the left buttock comes and goes. He has had it in the past. He has had shingles vaccine. Objective Data Objective Data Vital Signs: Vital Signs Temp Pulse Resp BP Pulse Ox 98.0 F 85 16 129/69 H 95 04/22/21 07:10 04/22/21 07:10 04/22/21 07:10 04/22/21 07:10 04/22/21 07:10 Oxygen Delivery Method Room Air Weight: 211 lb 10.3 oz Body Mass Index (BMI) 33.9 Intake & Output: Intake and Output for Last 24 Hours 04/20/21 04/21/21 04/22/21 23:59 23:59 23:59 Intake Total 400 / 400 0 / 0 Output Total 475 / 475 Balance -75 / -75 0 / 0 Lab / Micro Data Result Diagrams: 04/15/21 15:50 04/15/21 15:50 Micro: Microbiology 04/16/21 08:00 Stool Stool Occult Blood (FAVIOLA) - Final Physical Exam Const alert, oriented x3 and no apparent distress Constitutional Narrative: Very upbeat with a positive attitude. Doing exercises in his room when he is not doing therapy. Makes good eye contact. Good sense of humor General Appearance: cooperative, comfortable, well kempt and well developed Eyes PERRL, EOMs intact bilaterally, conjunctivae normal and no scleral icterus Resp normal respiratory effort, normal air movement, no use of accessory muscles and clear to auscultation bilaterally Resp Narrative: Able to speak in full sentences. Auscultation: Negative for rales, rhonchi or wheezes Cardio regular rate, regular rhythm, no murmurs, no rub and no gallops GI normal to inspection, nondistended, normoactive bowel sounds, soft to palpation and non-tender GI Narrative: no guarding with palpation Extremity General Extremity: Negative for clubbing, cyanosis or edema Neuro Neuro Narrative: facial droop is less pronounced and the speech is more crisp. Mild slurring only. Has movement of the R elbow and shoulder and today has movement in the R thumb. He is having some spasms in the R hand today........not painful. Psych cooperative and affect normal Appearance: appropriate Activity / Motor Behavior: Negative for restless Mood & Affect: Negative for depressed or anxious Thought Content: No delusion(s) Assessment & Plan Assessment/Plan (1) Insomnia: (2) Iron deficiency anemia: (3) Dysarthria: (4) Right hemiparesis: (5) Cognitive dysfunction: (6) Facial droop: (7) Hypertension: (8) Stroke/cerebrovascular accident: PLAN: 1. Dc the Ambien and start Doxepin 25 mg at 2100 nightly. 2. PVR's daily for the next 3 days 3. Continue to monitor the BP for the next few days and if the 7 PM systolic is still > 130 will likely increase the Lisinopril to 20 mg. 4. Continue therapy - making good progress. 5. discussed the warning signs of possible stroke with him and he was able to name 3 of the 7 today. Also discussed goal for BP control. Will continue education as long as he is on rehab. 6. 30 day event monitor at [place]. 7. HH and a ROSA in the AM Charges/Coding Visit Charges Inpatient E&M: 37331 Subs Hosp L2
[2021-04-22] MEDS: Ascorbic Acid 500 MG Tablet 1000 MG PO (13:09)
[2021-04-22] MEDS: Ferrous Sulfate 325 MG Tablet PO (13:09)
[2021-04-22 16:29] VITALS: BMI 33.9
[2021-04-22] MEDS: Acyclovir 5% Tube 1 APPLIC TOPICAL ×2 (18:22→20:18)
[2021-04-22 19:36] VITALS: BP 142/78; PULSE 74; RESP 18; TEMP 36.6; O2SAT 94
[2021-04-22] MEDS: Doxepin Hcl 25 MG Capsule PO (20:19)
[2021-04-22] MEDS: Gabapentin 300 MG Capsule PO (20:19)
[2021-04-22] MEDS: Atorvastatin Calcium 80 MG Tablet PO (20:19)
[2021-04-23] MEDS: Acyclovir 5% Tube 1 APPLIC TOPICAL ×5 (05:36→20:58)
[2021-04-23] MEDS: Enoxaparin 40 MG/0.4 ML Syringe SC (05:37)
[2021-04-23 05:44] LABS: Hematocrit 40.4 % (40-54); Hemoglobin 13.3 g/dL (13.0-16.5)
[2021-04-23 06:28] LABS: Anion Gap 5 (5-15); BUN 18 mg/dL (7-18); BUN/Creat Ratio 24.3 RATIO (10-20); Calcium,Total 8.9 mg/dL (8.5-10.1); Chloride 106 mmol/L (98-107); Creatinine, Serum 0.74 mg/dL (0.70-1.30); EST Glomerular Filtration Rate 114 mL/min (>60); Est Glom Filt Rate - Afr Amer 138 mL/min (>60); Glucose 108 mg/dL (74-106); Potassium 3.6 mmol/L (3.5-5.1); Sodium Level 139 mmol/L (136-145)
[2021-04-23 08:25] VITALS: BP 134/78; PULSE 76; RESP 16; TEMP 36.2; O2SAT 94
[2021-04-23] MEDS: Aspirin 81 MG TAB.CHEW PO (09:00)
[2021-04-23] MEDS: Pantoprazole Sodium 20 MG Tablet PO ×2 (09:00→20:58)
[2021-04-23] MEDS: NYSTATIN 500,000 UNIT/5 ML UDC 500000 UNIT PO ×2 (09:00→20:58)
[2021-04-23] MEDS: Clopidogrel Bisulfate 75 MG Tablet PO (09:00)
[2021-04-23] MEDS: Lisinopril 5 MG Tablet 15 MG PO (09:01)
[2021-04-23] MEDS: Ascorbic Acid 500 MG Tablet 1000 MG PO (11:38)
[2021-04-23] MEDS: Ferrous Sulfate 325 MG Tablet PO (11:38)
[2021-04-23 14:26] VITALS: BMI 33.9
[2021-04-23] MEDS: Doxepin Hcl 25 MG Capsule PO (20:57)
[2021-04-23] MEDS: Atorvastatin Calcium 80 MG Tablet PO (20:57)
[2021-04-23] MEDS: Gabapentin 300 MG Capsule PO (20:58)
[2021-04-23 21:00] VITALS: BP 141/85; PULSE 76; RESP 18; TEMP 35.8; O2SAT 100; BMI 33.9
--- NOTE | 2021-04-23 23:29 | NURSING ---
Reviewed and agree with METAL WORK DUCT INSTALLER assessment.
[2021-04-24] MEDS: Acyclovir 5% Tube 1 APPLIC TOPICAL ×5 (07:06→21:22)
[2021-04-24] MEDS: Enoxaparin 40 MG/0.4 ML Syringe SC (07:06)
[2021-04-24] MEDS: Pantoprazole Sodium 20 MG Tablet PO ×2 (07:32→21:21)
[2021-04-24] MEDS: Aspirin 81 MG TAB.CHEW PO (07:32)
[2021-04-24] MEDS: Lisinopril 5 MG Tablet 15 MG PO (07:32)
[2021-04-24] MEDS: Clopidogrel Bisulfate 75 MG Tablet PO (07:32)
[2021-04-24 08:14] VITALS: BP 131/76; PULSE 81; RESP 16; TEMP 36.5; O2SAT 97
[2021-04-24] MEDS: NYSTATIN 500,000 UNIT/5 ML UDC 500000 UNIT PO ×2 (09:25→21:22)
[2021-04-24] MEDS: Ferrous Sulfate 325 MG Tablet PO (11:52)
[2021-04-24] MEDS: Ascorbic Acid 500 MG Tablet 1000 MG PO (11:52)
[2021-04-24 16:05] VITALS: BMI 33.9
[2021-04-24] MEDS: Gabapentin 300 MG Capsule PO (21:21)
[2021-04-24] MEDS: Doxepin Hcl 25 MG Capsule PO (21:21)
[2021-04-24] MEDS: Atorvastatin Calcium 80 MG Tablet PO (21:21)
[2021-04-24 21:25] VITALS: BP 125/71; PULSE 90; RESP 16; TEMP 36.2; O2SAT 93; BMI 33.9
--- NOTE | 2021-04-25 03:24 | NURSING ---
Reviewed and agree with NYLON WINDER assessment and handoff.
[2021-04-25] MEDS: Enoxaparin 40 MG/0.4 ML Syringe SC (06:08)
[2021-04-25] MEDS: Acyclovir 5% Tube 1 APPLIC TOPICAL ×5 (06:08→21:33)
[2021-04-25] MEDS: Pantoprazole Sodium 20 MG Tablet PO ×2 (08:03→21:32)
[2021-04-25] MEDS: Clopidogrel Bisulfate 75 MG Tablet PO (08:04)
[2021-04-25] MEDS: NYSTATIN 500,000 UNIT/5 ML UDC 500000 UNIT PO ×2 (08:04→21:32)
[2021-04-25] MEDS: Lisinopril 5 MG Tablet 15 MG PO (08:04)
[2021-04-25] MEDS: Aspirin 81 MG TAB.CHEW PO (08:04)
[2021-04-25 10:00] VITALS: BP 112/70; PULSE 77; RESP 18; TEMP 36.2; O2SAT 96
[2021-04-25 10:45] VITALS: BMI 33.9
[2021-04-25] MEDS: Ferrous Sulfate 325 MG Tablet PO (11:54)
[2021-04-25] MEDS: Ascorbic Acid 500 MG Tablet 1000 MG PO (11:54)
[2021-04-25] MEDS: Doxepin Hcl 25 MG Capsule PO (21:33)
[2021-04-25] MEDS: Gabapentin 300 MG Capsule PO (21:33)
[2021-04-25] MEDS: Atorvastatin Calcium 80 MG Tablet PO (21:33)
[2021-04-25 22:00] VITALS: BP 128/69; PULSE 81; RESP 16; TEMP 36.8; O2SAT 94; O2SAT 96; BMI 33.9
--- NOTE | 2021-04-26 02:11 | NURSING ---
Reviewed and agree with BATTERY CONTAINER INSPECTOR assessment.
[2021-04-26] MEDS: Enoxaparin 40 MG/0.4 ML Syringe SC (05:48)
[2021-04-26] MEDS: Acyclovir 5% Tube 1 APPLIC TOPICAL ×5 (06:43→21:39)
[2021-04-26 07:41] VITALS: BP 145/73; PULSE 86; RESP 18; TEMP 36.8; O2SAT 94
[2021-04-26] MEDS: Clopidogrel Bisulfate 75 MG Tablet PO (08:24)
[2021-04-26] MEDS: Aspirin 81 MG TAB.CHEW PO (08:24)
[2021-04-26] MEDS: Pantoprazole Sodium 20 MG Tablet PO ×2 (08:24→21:37)
[2021-04-26] MEDS: Lisinopril 5 MG Tablet 15 MG PO (08:25)
[2021-04-26] MEDS: NYSTATIN 500,000 UNIT/5 ML UDC 500000 UNIT PO ×2 (08:28→21:37)
--- NOTE | 2021-04-26 10:29 | PCM.PROGNOTE ---
Subjective Subjective Afebrile VSS - BP is still mildly elevated at 7 PM. No low BP's. Maintaining appropriate oxygen saturation on RA Oral intake is good Discussed with nursing - no problems that need addressed. He is sleeping well. Very motivated. He is pleasant and talkative and no signs of depression. Reviewed the PT/OT/ST notes - He is now getting E stim for the RUE and he now has some movement distal to the elbow starting. Medication list reviewed. Denies cough, SOB, sore throat, PND, CP, palpitations, dysuria, urinary hesitancy, urine retention, N/V/abd pain. He has no complaints. Objective Data Objective Data Vital Signs: Vital Signs Temp Pulse Resp BP Pulse Ox 98.2 F 86 18 145/73 H 94 04/26/21 07:41 04/26/21 07:41 04/26/21 07:41 04/26/21 07:41 04/26/21 07:41 Oxygen Delivery Method Room Air Weight: 211 lb 10.3 oz Body Mass Index (BMI) 33.9 Lab / Micro Data Result Diagrams: 04/23/21 05:35 04/23/21 05:35 Micro: Microbiology 04/16/21 08:00 Stool Stool Occult Blood (FAVIOLA) - Final Physical Exam Const alert, oriented x3 and no apparent distress General Appearance: cooperative, comfortable, well kempt and well developed Resp normal respiratory effort, normal air movement and clear to auscultation bilaterally Effort and Inspection: able to speak in complete sentences Cardio regular rate, regular rhythm and no gallops GI normal to inspection, nondistended, normoactive bowel sounds, soft to palpation and non-tender GI Narrative: No guarding with palpation Extremity normal capillary refill, no calf tenderness and no pedal edema Skin General Skin Exam: no breakdown Rashes: no rashes Neuro Neuro Narrative: Still with R side hemiparesis. Now having some movement distal to the elbow in the RUE. Still ambulating in a step to fashion but with better beth. Facial droop is lessening. Assessment & Plan Assessment/Plan (1) Insomnia: PLAN: sleeping well with the Doxepin at HS. No sx of urine retention. (2) Iron deficiency anemia: PLAN: HGB on Monday was 13.3. Ferritin was 4 earlier in the admission. Why is he iron deficient? Hemoccult was negative. He thinks it may be due to regular blood donation. Will also check a UA to make sure he is not having blood loss in the urine. He has had regular colonoscopies due to a dysplastic polyp in the past. (3) Right hemiparesis: PLAN: Continue therapy/E STIM (4) Physical debility: (5) Hypertension: PLAN: Increase the Lisinopril to 20mg daily. (6) Stroke/cerebrovascular accident: PLAN: 30 day event monitor at [place]. He is only 60 and has now had 2 strokes. Charges/Coding Visit Charges Inpatient E&M: 29735 Subs Hosp L2
[2021-04-26] MEDS: Ferrous Sulfate 325 MG Tablet PO (12:08)
[2021-04-26] MEDS: Ascorbic Acid 500 MG Tablet 1000 MG PO (12:08)
--- NOTE | 2021-04-26 15:18 | CASEMGMT ---
Social Work IDT met with patient for Team meeting. Discussed patient's progress in PT/OT/ST and nursing. Pt making progress. Explained pt NRD with insurance is 05/04 and continued stay is not guaranteed. The goal is for pt to return home alone at time of discharge. SW will arrange for therapy and DME as indicated at time of discharge. Will ReTeam next week. SW to continue to follow. SHARIF Guidry
[2021-04-26 15:23] LABS: Bacteria 0 SEEN /hpf (None Seen); Mucous, Urine 0 SEEN /hpf (<or=2+); Red Blood Cells-Urine 0 SEEN /hpf (0-5); Squamous Epithelial Cells - UA 0 SEEN /hpf (0-5)
[2021-04-26 15:32] LABS: Color, Urine Yellow (Yellow); Glucose, Dipstick Normal (Normal); Ketone-Dipstick Negative (Negative); Leukocyte Esterase-Dipstick 25 /ul (Negative); Nitrite-Dipstick Negative (Negative); Occult Blood-Urine Negative /ul (Negative); Protein-Dipstick Negative (Negative); Urine Bilirubin Dipstick Negative (Negative); Urine Clarity Clear (Clear); Urine Urobilinogen Normal (Normal)
[2021-04-26 15:58] LABS: White Blood Cells 0-5 SEEN /hpf (0-5)
[2021-04-26 16:32] VITALS: BMI 33.9
[2021-04-26 19:30] VITALS: BP 142/71; PULSE 91; RESP 16; TEMP 37.1; O2SAT 97
[2021-04-26] MEDS: Doxepin Hcl 25 MG Capsule PO (21:37)
[2021-04-26] MEDS: Atorvastatin Calcium 80 MG Tablet PO (21:37)
[2021-04-26] MEDS: Gabapentin 300 MG Capsule PO (21:37)
[2021-04-26 23:34] VITALS: BMI 33.9
--- NOTE | 2021-04-27 04:13 | NURSING ---
Reviewed and agree with LOG SCALER documentation and assessment charting.
[2021-04-27] MEDS: Acyclovir 5% Tube 1 APPLIC TOPICAL ×5 (05:33→20:57)
[2021-04-27] MEDS: Enoxaparin 40 MG/0.4 ML Syringe SC (05:33)
[2021-04-27 07:38] VITALS: BP 120/68; PULSE 67; RESP 18; TEMP 36.3; O2SAT 98
[2021-04-27] MEDS: Lisinopril 20 MG Tablet PO (08:35)
[2021-04-27] MEDS: Clopidogrel Bisulfate 75 MG Tablet PO (08:35)
[2021-04-27] MEDS: Pantoprazole Sodium 20 MG Tablet PO ×2 (08:35→20:58)
[2021-04-27] MEDS: Aspirin 81 MG TAB.CHEW PO (08:35)
[2021-04-27] MEDS: Ferrous Sulfate 325 MG Tablet PO (11:48)
[2021-04-27] MEDS: Ascorbic Acid 500 MG Tablet 1000 MG PO (11:48)
[2021-04-27 15:03] VITALS: BMI 33.9
[2021-04-27 19:12] VITALS: BP 130/72; PULSE 75; RESP 18; TEMP 36.6; O2SAT 93
[2021-04-27] MEDS: Atorvastatin Calcium 80 MG Tablet PO (20:59)
[2021-04-27] MEDS: Doxepin Hcl 25 MG Capsule PO (20:59)
[2021-04-27] MEDS: Gabapentin 300 MG Capsule PO (20:59)
[2021-04-27 21:09] VITALS: BMI 33.9
[2021-04-27 22:00] VITALS: PULSE 75; RESP 17; O2SAT 95
[2021-04-28] MEDS: Acyclovir 5% Tube 1 APPLIC TOPICAL ×2 (06:53→07:55)
[2021-04-28] MEDS: Enoxaparin 40 MG/0.4 ML Syringe SC (06:53)
[2021-04-28 07:23] VITALS: BP 131/72; PULSE 72; RESP 16; TEMP 36.3; O2SAT 96
[2021-04-28] MEDS: Aspirin 81 MG TAB.CHEW PO (07:54)
[2021-04-28] MEDS: Clopidogrel Bisulfate 75 MG Tablet PO (07:54)
[2021-04-28] MEDS: Pantoprazole Sodium 20 MG Tablet PO ×2 (07:54→21:38)
[2021-04-28] MEDS: Lisinopril 20 MG Tablet PO (07:55)
--- NOTE | 2021-04-28 11:37 | PCM.PROGNOTE ---
Subjective Subjective Afebrile VSS Maintaining appropriate oxygen saturation on RA Oral intake is good Discussed with nursing - Will need to check the area of shingles on the R buttock......nursing tells me there is a second spot now......may have to transition to oral Acyclovir. Reviewed the PT/OT/ST notes MRS for PT is down to a 3 now and he is using a standard cane rather than a quad cane and he is SBA. He can ascend/descend 2 std steps with 1 HR now. He is going to have a HR put up at home prior to being DC'd so that he can safely enter his home. Medication list reviewed. Ray has no complaints. He denies CP, SOB, palpitations, dysuria, nocturia, cough, ST, calf pain. He asked me if he could have a RX for the Doxepin at [place] and I told him of course. He is sleeping very well now and likes that the drug is not addictive. He knows it can cause urine retention sometimes in men as they age and we discussed what to look for. Objective Data Objective Data Vital Signs: Vital Signs Temp Pulse Resp BP Pulse Ox 97.3 F L 72 16 131/72 H 96 04/28/21 07:23 04/28/21 07:23 04/28/21 07:23 04/28/21 07:23 04/28/21 07:23 Oxygen Delivery Method Room Air Weight: 207 lb 7.28 oz Body Mass Index (BMI) 33.9 Intake & Output: Intake and Output for Last 24 Hours 04/26/21 04/27/21 04/28/21 23:59 23:59 23:59 Intake Total 720 / 720 360 / 360 Balance 720 / 720 360 / 360 Lab / Micro Data Result Diagrams: 04/23/21 05:35 04/23/21 05:35 Micro: Microbiology 04/16/21 08:00 Stool Stool Occult Blood (FAVIOLA) - Final Physical Exam Const alert, oriented x3 and no apparent distress General Appearance: cooperative, well kempt and well developed Resp clear to auscultation bilaterally Effort and Inspection: able to speak in complete sentences Cardio regular rate and regular rhythm GI normal to inspection, nondistended, normoactive bowel sounds, soft to palpation and non-tender Extremity no calf tenderness and no pedal edema Skin Skin Narrative: The initial area of shingles on the R buttock has dried up and resolved. He has a new area over the sacrum that is vesicles on an erythematous base with vesicles. General Skin Exam: no breakdown Neuro Neuro Narrative: movement in the R hand is improving. He is able to stand up from the recliner with no AD pushing up on the LUE and the Left leg with the prosthesis. Psych mental status grossly normal, thought process normal, cooperative, affect normal, denies homicidal ideation and denies suicidal ideation Appearance: grossly normal Activity / Motor Behavior: appropriate eye contact Mood & Affect: euthymic mood Insight: insight good Judgement: judgement good Assessment & Plan Assessment/Plan (1) Insomnia: (2) Iron deficiency anemia: (3) Stroke/cerebrovascular accident: (4) Right hemiparesis: (5) Shingles rash: PLAN: 1. Continue therapy - he is making good progress and I think that at DC he will going home by himself and he will be safe at home. He has arranged to have a friend install the HR outside his home and he has ordered grab bars that will be put up prior to him being discharged. 2. DC Zovirax topical and start PO Acyclovir 3. RX for Doxepin at DC. 4. 30 day event monitor at DC and follow up with neurology Charges/Coding Visit Charges Inpatient E&M: 54964 Subs Hosp L2
[2021-04-28] MEDS: Ferrous Sulfate 325 MG Tablet PO (12:40)
[2021-04-28] MEDS: Ascorbic Acid 500 MG Tablet 1000 MG PO (12:40)
[2021-04-28] MEDS: Acyclovir 200 MG Capsule 400 MG PO ×3 (14:25→21:37)
[2021-04-28 17:00] VITALS: BMI 33.9
[2021-04-28 19:07] VITALS: BP 114/73; PULSE 85; RESP 18; TEMP 36.4; O2SAT 95
[2021-04-28 21:29] VITALS: BMI 33.9
[2021-04-28] MEDS: Gabapentin 300 MG Capsule PO (21:38)
[2021-04-28] MEDS: Doxepin Hcl 25 MG Capsule PO (21:38)
[2021-04-28] MEDS: Atorvastatin Calcium 80 MG Tablet PO (21:38)
[2021-04-28] MEDS: Sodium Chloride 0.65% 1 SPRAY SPRAY.BTL 2 SPRAY NASAL (21:54)
[2021-04-28 22:00] VITALS: PULSE 85; RESP 16; O2SAT 96
[2021-04-29] MEDS: Acyclovir 200 MG Capsule 400 MG PO ×5 (06:33→20:00)
[2021-04-29] MEDS: Enoxaparin 40 MG/0.4 ML Syringe SC (06:33)
[2021-04-29 07:32] VITALS: BP 138/89; PULSE 84; RESP 16; TEMP 36.2; O2SAT 96
[2021-04-29] MEDS: Aspirin 81 MG TAB.CHEW PO (08:24)
[2021-04-29] MEDS: Lisinopril 20 MG Tablet PO (08:25)
[2021-04-29] MEDS: Clopidogrel Bisulfate 75 MG Tablet PO (08:25)
[2021-04-29] MEDS: Pantoprazole Sodium 20 MG Tablet PO ×2 (08:25→20:01)
[2021-04-29] MEDS: Ascorbic Acid 500 MG Tablet 1000 MG PO (11:42)
[2021-04-29] MEDS: Ferrous Sulfate 325 MG Tablet PO (11:42)
[2021-04-29 17:00] VITALS: BMI 33.9
[2021-04-29 19:03] VITALS: BP 139/79; PULSE 88; RESP 18; TEMP 36.7; O2SAT 95
[2021-04-29] MEDS: Gabapentin 300 MG Capsule PO (20:02)
[2021-04-29] MEDS: Doxepin Hcl 25 MG Capsule PO (20:02)
[2021-04-29] MEDS: Atorvastatin Calcium 80 MG Tablet PO (20:02)
[2021-04-30] MEDS: Enoxaparin 40 MG/0.4 ML Syringe SC (06:21)
[2021-04-30] MEDS: Acyclovir 200 MG Capsule 400 MG PO ×5 (06:21→21:07)
[2021-04-30 07:39] VITALS: BP 141/81; PULSE 74; RESP 16; TEMP 36.6; O2SAT 96
[2021-04-30] MEDS: Pantoprazole Sodium 20 MG Tablet PO ×2 (07:43→21:07)
[2021-04-30] MEDS: Clopidogrel Bisulfate 75 MG Tablet PO (07:43)
[2021-04-30] MEDS: Aspirin 81 MG TAB.CHEW PO (07:43)
[2021-04-30] MEDS: Lisinopril 20 MG Tablet PO (07:43)
[2021-04-30] MEDS: Ascorbic Acid 500 MG Tablet 1000 MG PO (11:17)
[2021-04-30] MEDS: Ferrous Sulfate 325 MG Tablet PO (11:17)
[2021-04-30 14:55] VITALS: BMI 33.9
[2021-04-30 19:30] VITALS: BP 120/69; PULSE 79; RESP 18; TEMP 36.8; O2SAT 93
[2021-04-30] MEDS: Doxepin Hcl 25 MG Capsule PO (21:07)
[2021-04-30] MEDS: Gabapentin 300 MG Capsule PO (21:07)
[2021-04-30] MEDS: Atorvastatin Calcium 80 MG Tablet PO (21:07)
[2021-05-01 02:33] VITALS: BMI 33.9
--- NOTE | 2021-05-01 04:01 | NURSING ---
Reviewed and agree with RAYON TESTER assessment.
[2021-05-01] MEDS: Acyclovir 200 MG Capsule 400 MG PO ×5 (06:36→21:21)
[2021-05-01] MEDS: Enoxaparin 40 MG/0.4 ML Syringe SC (06:36)
[2021-05-01] MEDS: Aspirin 81 MG TAB.CHEW PO (07:26)
[2021-05-01] MEDS: Lisinopril 20 MG Tablet PO (07:26)
[2021-05-01] MEDS: Clopidogrel Bisulfate 75 MG Tablet PO (07:26)
[2021-05-01] MEDS: Pantoprazole Sodium 20 MG Tablet PO ×2 (07:26→21:21)
[2021-05-01 09:56] VITALS: BP 134/67; PULSE 72; RESP 18; TEMP 36.3; O2SAT 98
[2021-05-01] MEDS: Ferrous Sulfate 325 MG Tablet PO (11:59)
[2021-05-01] MEDS: Ascorbic Acid 500 MG Tablet 1000 MG PO (11:59)
[2021-05-01 14:38] VITALS: BMI 33.9
[2021-05-01 20:57] VITALS: BP 118/64; PULSE 86; RESP 17; TEMP 36.4; O2SAT 92
[2021-05-01] MEDS: Gabapentin 300 MG Capsule PO (21:21)
[2021-05-01] MEDS: Atorvastatin Calcium 80 MG Tablet PO (21:21)
[2021-05-01] MEDS: Doxepin Hcl 25 MG Capsule PO (21:21)
[2021-05-02 00:34] VITALS: BMI 33.9
--- NOTE | 2021-05-02 03:52 | NURSING ---
REVIEWED AND AGREE WITH TECHNICAL SALES SUPPORT SPECIALIST'S FUNCTIONAL ASSESSMENT AND HANDOFF CHARTING.
[2021-05-02] MEDS: Acyclovir 200 MG Capsule 400 MG PO ×5 (05:43→21:24)
[2021-05-02] MEDS: Enoxaparin 40 MG/0.4 ML Syringe SC (05:43)
[2021-05-02 07:55] VITALS: BP 124/77; PULSE 90; RESP 18; TEMP 36.3; O2SAT 96
[2021-05-02] MEDS: Lisinopril 20 MG Tablet PO (08:47)
[2021-05-02] MEDS: Clopidogrel Bisulfate 75 MG Tablet PO (08:47)
[2021-05-02] MEDS: Pantoprazole Sodium 20 MG Tablet PO ×2 (08:48→21:24)
[2021-05-02] MEDS: Aspirin 81 MG TAB.CHEW PO (08:48)
[2021-05-02] MEDS: Ascorbic Acid 500 MG Tablet 1000 MG PO (11:46)
[2021-05-02] MEDS: Ferrous Sulfate 325 MG Tablet PO (11:46)
[2021-05-02 14:14] VITALS: BMI 33.9
[2021-05-02 19:56] VITALS: BP 132/67; PULSE 88; RESP 16; TEMP 37; O2SAT 93
[2021-05-02] MEDS: Doxepin Hcl 25 MG Capsule PO (21:23)
[2021-05-02] MEDS: Atorvastatin Calcium 80 MG Tablet PO (21:23)
[2021-05-02] MEDS: Gabapentin 300 MG Capsule PO (21:23)
[2021-05-03 00:05] VITALS: BMI 33.9
--- NOTE | 2021-05-03 04:45 | NURSING ---
REVIEWED AND AGREE WITH ELECTRIC VEHICLE ELECTRICIAN'S FUNCTIONAL ASSESSMENT AND HANDOFF CHARTING.
[2021-05-03] MEDS: Enoxaparin 40 MG/0.4 ML Syringe SC (05:55)
[2021-05-03] MEDS: Acyclovir 200 MG Capsule 400 MG PO ×5 (05:55→21:02)
[2021-05-03] MEDS: Clopidogrel Bisulfate 75 MG Tablet PO (07:55)
[2021-05-03] MEDS: Pantoprazole Sodium 20 MG Tablet PO ×2 (07:55→21:02)
[2021-05-03] MEDS: Aspirin 81 MG TAB.CHEW PO (07:55)
[2021-05-03] MEDS: Lisinopril 20 MG Tablet PO (07:56)
[2021-05-03 08:21] VITALS: BP 121/69; PULSE 76; RESP 20; TEMP 36.6; O2SAT 95
[2021-05-03] MEDS: Ferrous Sulfate 325 MG Tablet PO (11:11)
[2021-05-03] MEDS: Ascorbic Acid 500 MG Tablet 1000 MG PO (11:11)
--- NOTE | 2021-05-03 12:23 | PN_ITS ---
Subjective Subjective Jere was seen on TEAM rounds today and his dtr Leandra participated by phone. Afebrile VSS-blood pressure is now well controlled. Maintaining appropriate oxygen saturation on RA Oral intake is good Discussed with nursing - no problems that need addressed Reviewed the PT/OT/ST notes Medication list reviewed. Jere has been doing his exercises in his room at least twice a day in addition to the exercise he does with therapy. He denies chest pain, palpitations, lightheadedness, shortness of breath, dysuria, cephalgia and calf tenderness. He has picked up the pace with ambulation and now has a functional time. He thinks he is ready to go home alone and the TEAM of therapists agree. He has had a Handrail installed to get up the steps and into his house and grab bars have been installed. Objective Data Objective Data Vital Signs: Vital Signs Temp Pulse Resp BP Pulse Ox 97.8 F 76 20 H 121/69 H 95 05/03/21 08:21 05/03/21 08:21 05/03/21 08:21 05/03/21 08:21 05/03/21 08:21 Oxygen Delivery Method Room Air Weight: 207 lb 7.28 oz Body Mass Index (BMI) 33.9 Intake & Output: Intake and Output for Last 24 Hours 05/01/21 05/02/21 05/03/21 23:59 23:59 23:59 Intake Total 480 / 480 360 / 360 Balance 480 / 480 360 / 360 Lab / Micro Data Result Diagrams: 04/23/21 05:35 04/23/21 05:35 Micro: Microbiology 04/16/21 08:00 Stool Stool Occult Blood (FAVIOLA) - Final Physical Exam Const alert, oriented x3 and no apparent distress Resp normal air movement and clear to auscultation bilaterally Cardio regular rate, regular rhythm, S1 normal heart sound and S2 normal heart sound GI normal to inspection, nondistended, normoactive bowel sounds, soft to palpation and non-tender Extremity no calf tenderness and no pedal edema Skin Skin Narrative: the 2 small patches of shingles on the Buttocks has dried up and resolved. No DC and no erythema. General Skin Exam: no breakdown Rashes: no rashes Assessment & Plan Assessment/Plan (1) Iron deficiency anemia: QUALIFIERS: Iron deficiency anemia type: unspecified iron deficiency Qualified Code(s): D50.9 - Iron deficiency anemia, unspecified (2) Stroke/cerebrovascular accident: QUALIFIERS: CVA mechanism: unspecified Qualified Code(s): I63.9 - Cerebral infarction, unspecified (3) Physical debility: PLAN: Plan DC home tomorrow with OP PT/OT/ST. The will arrange for transportation to [facility]. We discussed the goals for BP control, LDL and HGBA1C. He was advised to lose some weight to help with BS control and BP control. He understands why the 30 day event monitor is recommended and is agreeable to following with with [facility] to discuss the results. Since he has had 2 strokes and there is no significant stenosis on the CTA of the head the strokes may be embolic. He was advised to limit ETOH intake. We discussed the results of the ECHO he had and the significance of LAE and diastolic dysfunction. He is going to follow up with Dr. Marsh for neurology evaluation. Charges/Coding Visit Charges Inpatient E&M: 22690 Subs Hosp L2
[2021-05-03 13:13] VITALS: BMI 33.9
--- NOTE | 2021-05-03 14:22 | CASEMGMT ---
Addendum entered by Anne-Marie Ponce 05/03/21 16:23: Appts made with [facility] for PT/OT/ST. Scheduled with transportation. Noted in the DC plan. Attempted to contact pt but unavailable. Spoke with dtr and provided all appts and contact numbers. SOC 05/07. Dtr appreciative. Original Note: Social Work IDT met with patient and dtr via conference call for Team meeting. Discussed patient's progress in PT/OT/ST and nursing. Pt progress well. Explained [facility] insurance NRD 05/04. Pt expressed he feels ready to DC home tomorrow. IDT agreeable. Discussed HHC vs OP therapy. Pt prefers outpatient therapy at [facility], but does not have transportation. SW to assist with transportation resources for [facility]. Dtr concerned if there is a lag to coordinating those services, to start with HHC until OP is set up. Pt agreeable to plan. SW to coordinate and update pt. Dtr to transport pt home after work. No DME needs. Contacted [employer] for transportation assistance. Pt qualifies for this assistance and pt can contact when outpatient appts are scheduled. SW contacted [facility] to make appts for therapy. Left message - inquired about next available appt. Will await return call before ordering HHC. Plan: DC home alone 05/04 DARNELL GregoryW
--- NOTE | 2021-05-03 15:30 | DCINST_ITS ---
Discharge Instructions Diet Discharge Diet: - (low fat, low salt and moderate carb control) Activity Discharge Activity: May Not Drive, May Shower, Use Walker (I would use the walker when you are out in the community walking for better stability and balance.) and - (Use the straight cane if you are in the house.) Weight Bearing Status: Full weight bearing Lifting Restrictions: 5-10 lbs Keep extremity elevated above heart level: Legs Dressing / Incision Call your doctor if you observe: Fever of 101 or Higher, Inability to urinate, Inability to have a bowel movement, Shortness of breath, Dizziness, Fainting spells, Swelling in the ankles, Chest pain, Increased palpitations (irregular heartbeat), Calf discomfort and - (STROKE WARNING SIGNS:1. Sudden numbness or weakness of the face, arm or leg especially if on one side of the body only2. Sudden confusion, trouble speaking or understanding speech3. Sudden trouble seeing in 1 eye or both eyes4. Sudden trouble walking, dizziness, loss of balance or incoordination) Follow Up Care Please Follow Up With: Jenny Byrne MD Test Results: Test results from this visit will be discussed in further detail at your follow-up appointment, if applicable. Pending Tests Upon Discharge: none Discharge Plan Admission Admit Date/Time: 04/14/21 17:45 Primary Reason for Your Visit: Debility due to stroke. Attending Provider: Puja Marie Primary Care Provider: Jenny Bryne Instructions Patient Instructions: Intimacy After Stroke, Discharge Instructions for Stroke, Stroke Prevention Eating Healthy, Stroke Prevention Activity, ED AFIB Additional Instructions / Restrictions: 1. This is stroke #2 for you and we need to do everything we can to prevent another stroke. After a second stroke recommendations are to keep the LDL (bad cholesterol) 50 or less. We want the good cholesterol to be > 40. Exercise helps to increase HDL and so does a drug called Niacin. Your HDL at the other hospital was 50 and that is good for a man. You do not need Niacin at this time. The LDL was 109 and you were paced on a cholesterol medication called Lipitor, also called atorvastatin. Generally about 6 weeks after starting a statin the Lipid panel and the Liver profile should be checked. 2. Your BP was quite high after the stroke and the recommendations for BP post stroke is to keep the BP under 130/80. With some adjustments in medication your BP is now at goal most of the time. 3. You have impaired glucose tolerance, some people call this pre-diabetes. If you exercise regularly and get your weight down you will likely not become diabetic. Diabetes is a BIG risk factor for stroke. 4. You have already quit smoking and smoking is a BIG risk for stroke so good for you. 5. I do not know why you have had 2 strokes. It is likely a combination of things such as high blood pressure, an increased LDL (although yours was not really that bad), prior smoking history and elevated blood sugar BUT, we also need to consider a problem with the rhythm of the heart called atrial fibrillation or AFIB. AFIB increases stroke risk. Binge drinking and alcohol excess can cause atrial fibrillation so limit alcohol intake. A low potassium or a low magnesium can also cause AFIB and so can coronary artery disease. You are going to get a 30 day event monitor at discharge and this will monitor your heart rhythm for 30 days and then the supervisor warping department will review it and then will discuss the results with you at a follow up appt in the office. 6. You have done very well in therapy and had made great progress but, you need continued therapy to get you as close as possible to your level of function prior to the stroke........the brain heals slowly and I suspect you will continue to make progress. Keep doing the exercises given to you by the therapists once a day. Do not miss any of your medications or doctor's appts. In addition to follow up with Dr. Byrne and cardiology you will need to follow up with a neurologist to make sure you are doing everything possible to prevent another stroke. 7. The last thing is that you have anemia or a low blood count and you are iron deficient. To become iron deficient you usually have a chronic source of blood loss. This could be due to donating blood IF your body is not absorbing iron from the GI tract. If you chronically take a medication to suppress the acid production in the stomach because of reflux/heartburn or ulcers in the stomach this can suppress the absorption of iron in the GI tract. Acid is needed to absorb iron. For this reason we placed you on an iron supplement once a day and you should always take this with a meal (because your stomach produces acid when you eat) and take a Vitamin C (ascorbic acid) at the same time. You should have a repeat iron panel and a blood count in 4-6 weeks and I recommend you discuss this with Dr. Byrne. We checked your BM for blood while you were in rehab and and there is no blood in the stool. 8. If you have any questions after you leave rehab [facility] please do not hesitate to call me. Office: [phone] . Discharge Orders/Prescriptions Prescriptions: New lisinopril 20 mg Tablet 20 mg PO DAILY Qty: 30 RF: 0 ascorbic acid (vitamin C) 500 mg Tablet 1,000 mg PO 1200 Qty: 0 RF: 0 doxepin 25 mg Capsule 25 mg PO 2100 Qty: 30 RF: 0 ferrous sulfate [FeroSul] 325 mg (65 mg iron) Tablet 325 mg PO DAILY@1200 Qty: 30 RF: 0 pantoprazole 20 mg Tablet,Delayed Release (Dr/Ec) 20 mg PO BID Qty: 60 RF: 0 Continued gabapentin 300 MG capsule 300 mg PO QHS RF: 0 acetaminophen 325 mg Tablet 650 mg PO Q4H PRN (Reason: Pain) RF: 0 aspirin 81 mg Tablet 81 mg PO DAILY RF: 0 atorvastatin 80 mg Tablet 80 mg PO QHS Qty: 30 RF: 0 clopidogrel [Plavix] 75 mg Tablet 75 mg PO DAILY Qty: 30 RF: 0 Discontinued lisinopril 10 mg Tablet 10 mg PO DAILY RF: 0 heparin (porcine) 5,000 unit/mL Solution 5,000 unit SUBCUT Q12H RF: 0 Other Ambulatory Orders: 30-Day Event Recorder (Routine) Location: None Selected Ordered By: Dr. Puja Marie Referrals / Follow Up: Jenny Byrne MD [Primary Care Provider] - 05/07/21 2:00 pm Ryan Marsh MD [STAFF PHYSICIAN] - 07/06/21 9:00 am (Neurologist ) Disposition Disposition (needs filled in before D/C Order can be placed): Home, Self Care
[2021-05-03 19:27] VITALS: BP 132/75; PULSE 89; RESP 16; TEMP 36.3; O2SAT 95
[2021-05-03] MEDS: Doxepin Hcl 25 MG Capsule PO (21:02)
[2021-05-03] MEDS: Gabapentin 300 MG Capsule PO (21:02)
[2021-05-03] MEDS: Atorvastatin Calcium 80 MG Tablet PO (21:02)
[2021-05-04 02:17] VITALS: BMI 33.9
--- NOTE | 2021-05-04 03:02 | NURSING ---
Reviewed and agree with [employer] documentation and assessment charting.
[2021-05-04] MEDS: Acyclovir 200 MG Capsule 400 MG PO ×2 (06:02→08:28)
[2021-05-04] MEDS: Enoxaparin 40 MG/0.4 ML Syringe SC (06:02)
[2021-05-04 07:44] VITALS: BP 117/69; PULSE 78; RESP 16; TEMP 36.4; O2SAT 98
[2021-05-04] MEDS: Aspirin 81 MG TAB.CHEW PO (08:27)
[2021-05-04] MEDS: Clopidogrel Bisulfate 75 MG Tablet PO (08:27)
[2021-05-04] MEDS: Pantoprazole Sodium 20 MG Tablet PO (08:28)
[2021-05-04] MEDS: Lisinopril 20 MG Tablet PO (08:28)
--- NOTE | 2021-05-04 11:19 | DS.PCM_ITS ---
Providers Date of Admission: 04/14/21 Date of Discharge: 05/04/21 Primary Care Physician: Dr. Jenny Byrne MD Reason For Visit: STROKE Diagnosis Discharge Diagnosis (1) Physical debility: Status: Acute Code(s): R53.81 - Other malaise (2) Stroke/cerebrovascular accident: Status: Acute Code(s): I63.9 - Cerebral infarction, unspecified Qualifiers: CVA mechanism: unspecified Qualified Code(s): I63.9 - Cerebral infarction, unspecified (3) Right hemiparesis: Status: Acute Code(s): G81.91 - Hemiplegia, unspecified affecting right dominant side (4) Dysarthria: Status: Acute Code(s): R47.1 - Dysarthria and anarthria (5) Cognitive dysfunction: Status: Acute Code(s): F09 - Unspecified mental disorder due to known physiological condition (6) Facial droop: Status: Acute Code(s): R29.810 - Facial weakness (7) Shingles rash: Status: Acute Code(s): B02.9 - Zoster without complications Qualifiers: Herpes zoster complications: without complications Qualified Code(s): B02.9 - Zoster without complications (8) Insomnia: Status: Acute Code(s): G47.00 - Insomnia, unspecified Qualifiers: Insomnia type: unspecified Qualified Code(s): G47.00 - Insomnia, unspecified (9) Iron deficiency anemia: Status: Acute Code(s): D50.9 - Iron deficiency anemia, unspecified Qualifiers: Iron deficiency anemia type: unspecified iron deficiency Qualified Code(s): D50.9 - Iron deficiency anemia, unspecified (10) Diastolic dysfunction: Status: Acute Code(s): I51.89 - Other ill-defined heart diseases (11) Neuropathy: Status: Acute Code(s): G62.9 - Polyneuropathy, unspecified (12) Dyslipidemia: Status: Acute Code(s): E78.5 - Hyperlipidemia, unspecified (13) Glucose intolerance (impaired glucose tolerance): Status: Acute Code(s): R73.02 - Impaired glucose tolerance (oral) (14) Obesity (BMI 30.0-34.9): Status: Acute Code(s): E66.9 - Obesity, unspecified (15) Hypertension: Status: Chronic Code(s): I10 - Essential (primary) hypertension Qualifiers: Hypertension type: primary hypertension Qualified Code(s): I10 - Essential (primary) hypertension (16) LAE (left atrial enlargement): Status: Acute Code(s): I51.7 - Cardiomegaly Plan: DC home with OP PT/OT/ST at [facility]. Transportation arranged by . No DME needs. Will follow up with Dr. Byrne and also with Dr. Marsh from neurology. Medications at Discharge Home Medications gabapentin 300 mg PO QHS 04/09/15 acetaminophen 650 mg PO Q4H PRN 04/14/21 aspirin 81 mg PO DAILY 04/14/21 ascorbic acid (vitamin C) 1,000 mg PO 1200 #0 tab 05/03/21 atorvastatin 80 mg PO QHS #30 tab 05/03/21 clopidogrel [Plavix] 75 mg PO DAILY #30 tab 05/03/21 doxepin 25 mg PO 2100 #30 cap 05/03/21 ferrous sulfate [FeroSul] 325 mg PO DAILY@1200 #30 tab 05/03/21 lisinopril 20 mg PO DAILY #30 tab 05/03/21 pantoprazole 20 mg PO BID #60 tab 05/03/21 Hospital Course Operations None Procedures 2-D Echocardiogram (ECHO at [facility] showed EF of 55-60% with no regional wall motion abnormalities. The LA was mildly dilated and the bubble study was negative for a R to L shunt. There was impaired relaxation of the ventricle in diastole. ) and - (Carotid US at [facility] showed less than 50% stenosis in the Proximal BL ICA's. 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 The sx resolved and he went to meet a friend. At about 6 PM he noticed that he was slurring his speech. He decided to go the the ED and arrived at about 8 PM. He had a R facial droop and slurred speech upon arrival and the NIHSS was 1. BP at arrival to the ED was 204/115. A NC CT brain showed no acute findings. He was admitted to the hospital for observation. Overnight the sx progressed and he developed weakness again in the RUE. The tele- neurologist recommended loading him with Plavix and obtaining an MRI. The MRI showed a small acute infarct in the left flores radiata extending slightly into the left external capsule and lentiform nuclei. There was also a chronic lacunar infarct involving the left caudate head. Significant lab at [facility] included a low HGB of 12.1 with a low MCV at 78. The LDL was 109 and the HDL was 50. TRIG were 119. He was seen in consultation by PT/OT and ST and transfer to an acute inpat rehab unit was recommended. He was agreeable and he was transferred to the acute inpt rehab unit at [facility] on 04/14/21 for 3 hours of therapy daily to restore function at or near his prior level of function. NIHSS at presentation to rehab was 8 for facial droop, no movement in the RUE, drift in the RLE, mild - moderate aphasia and dysarthria. The MRS at admission was 4. Jere is a and he lives alone. Iron studies were obtained because of the microcytic anemia and also a hemoccult stool because of the hx of the hx of the villous adenoma in the past. Heme stool was negative but the ferritin was markedly decreased at 14 and the % iron saturation was low at 9.8% (it should be > 20%). He was started on an iron supplement and the iron was given with ascorbic acid to improve absorption from the GI tract since he is chronically on a PPI for GERD. A UA was obtained to evaluate for microscopic hematuria as etiology of chronic blood loss however there were 0 RBCs in the urine. Jere believes the iron deficiency may be due to the fact that he donates blood and he had recently given a power pack. He has had follow up colonoscopies since the resection of the villous adenoma and he has never had another problem. He has been following up with Dr. David Colón. Jere had no significant complications while in rehab and he worked hard and made good progress. Prior to DC his cognitive dysfunction, facial droop and swallowing problems had improved to the point where speech was able to cut down his therapy time with speech to 30 minutes a day, leaving more time for PT and OT. At the time of discharge he was able to ascend/descend 2 6 steps 6X with 1 HR at contact guard assist. Hand rails were installed at his house prior to discharge on 05/04/21. He had ambulated up to 450' with a straight cane independently with no assist from the therapist while moving at a good pace. He was independent with eating and grooming himself. He required minimal assistance for bathing, mostly to help wash the L UE. He could dress himself with no assistance. He is doing toilet transfer and toileting with supervision/set up. He has had grab bars installed in the shower. At TEAM meeting on 05/03/21 we discussed if Jere would be safe going home by himself and everyone agreed he was appropriate for DC home. A cousin was going to transport Jere home from the hospital and stay with him overnight. His step daughter will check in on him as well. The arranged transportation for rate to get to [facility] for PT/OT/ST. He had no DME needs. He should have repeat iron studies in 6-8 weeks to see if the iron stores are increasing. He was instructed not to donate blood until the iron stores are rechecked. If the iron stores have not improved he will likely need a w/u to ID the cause of chronic blood loss and possible referral to hematology for IV iron therapy. Jere will follow up with Dr. Byrne post DC and also with Dr. Olegario Marsh from neurology. He will receive a 30 day event monitor in the mail and will need follow up with cardiology going forward to discuss the results. Since this is his second stroke would recommend LDL less than or equal to 50. NIHSS at DC was 2 for drift with the RUE and mild facial droop on the R (much better than at admission) MRS (modified [place] score) is 2. Physical Exam Const alert, oriented x3 and no apparent distress General Appearance: cooperative and well developed HEENT normocephalic and moist oral mucous membranes Eyes PERRL and EOMs intact bilaterally Neck supple and no carotid bruits General: trachea midline; Negative for lymphadenopathy Resp normal respiratory effort, normal air movement and clear to auscultation b ilaterally Resp Narrative: not tachypneic with exertion or at rest Auscultation: Negative for rales, rhonchi or wheezes Cardio regular rate, regular rhythm, S1 normal heart sound, S2 normal heart sound, no murmurs, no rub and no gallops Cardio Narrative: no ectopy GI normal to inspection, nondistended, normoactive bowel sounds, soft to palpation and non-tender Extremity no calf tenderness and no pedal edema Skin General Skin Exam: no breakdown Rashes: no rashes Neuro Neuro Narrative: See NIHSS score of 2 at DC for drift with the RUE and mild facial droop on the R. Psych mental status grossly normal, thought process normal, cooperative, affect normal and activity/motor behavior normal Weight / BMI Weight Weight: 207 lb 7.28 oz Body Mass Index (BMI) 33.9 ABG / Lab / Microbiology Data Result Diagrams: 04/23/21 05:35 04/23/21 05:35 Microbiology: Microbiology 04/16/21 08:00 Stool Stool Occult Blood (FAVIOLA) - Final D/C Instructions Discharge Diet: - (low fat, low salt and moderate carb control) Weight Bearing Status: Full weight bearing Keep extremity elevated above heart level: Legs Call your doctor if you observe: Fever of 101 or Higher, Inability to urinate, Inability to have a bowel movement, Shortness of breath, Dizziness, Fainting spells, Swelling in the ankles, Chest pain, Increased palpitations (irregular heartbeat), Calf discomfort and - (STROKE WARNING SIGNS:1. Sudden numbness or weakness of the face, arm or leg especially if on one side of the body only2. Sudden confusion, trouble speaking or understanding speech3. Sudden trouble seeing in 1 eye or both eyes4. Sudden trouble walking, dizziness, loss of balance or incoordination) Pending Tests Upon Discharge: none Please Follow Up With: Jenny Byrne MD Meaningful Use Info Meaningful Use Diagnoses (Choose all that apply): Ischemic CVA CVA Therapy Assessed for PT,OT and/or ST?: Yes Ischemic Stroke Antithrombotic order at d/c?: Yes Dx of Atrial fib/flutter?: No Anticoagulant at discharge?: No Reason anticoagulant not ordered: Treatment not Indicated (He will get a 30 day event monitor at DC.) Statins at discharge?: Yes Primary Dx Acute Ischemic CVA?: Yes IV tPA ordered during stay?: No Reason IV t-PA not ordered: Treatment not Indicated Discharge Plan Admission Admit Date/Time: 04/14/21 17:45 Primary Reason for Your Visit: Debility due to stroke. Attending Provider: Puja Marie Primary Care Provider: Jenny Byrne Instructions Patient Instructions: Intimacy After Stroke, Discharge Instructions for Stroke, Stroke Prevention Eating Healthy, Stroke Prevention Activity, ED AFIB Additional Instructions / Restrictions: 1. This is stroke #2 for you and we need to do everything we can to prevent another stroke. After a second stroke recommendations are to keep the LDL (bad cholesterol) 50 or less. We want the good cholesterol to be > 40. Exercise helps to increase HDL and so does a drug called Niacin. Your HDL at the other hospital was 50 and that is good for a man. You do not need Niacin at this time. The LDL was 109 and you were paced on a cholesterol medication called Lipitor, also called atorvastatin. Generally about 6 weeks after starting a statin the Lipid panel and the Liver profile should be checked. 2. Your BP was quite high after the stroke and the recommendations for BP post stroke is to keep the BP under 130/80. With some adjustments in medication your BP is now at goal most of the time. 3. You have impaired glucose tolerance, some people call this pre-diabetes. If you exercise regularly and get your weight down you will likely not become diabetic. Diabetes is a BIG risk factor for stroke. 4. You have already quit smoking and smoking is a BIG risk for stroke so good for you. 5. I do not know why you have had 2 strokes. It is likely a combination of things such as high blood pressure, an increased LDL (although yours was not really that bad), prior smoking history and elevated blood sugar BUT, we also need to consider a problem with the rhythm of the heart called atrial fibrillation or AFIB. AFIB increases stroke risk. Binge drinking and alcohol excess can cause atrial fibrillation so limit alcohol intake. A low potassium or a low magnesium can also cause AFIB and so can coronary artery disease. You are going to get a 30 day event monitor at discharge and this will monitor your heart rhythm for 30 days and then the adjunct professor of u.s. history will review it and then will discuss the results with you at a follow up appt in the office. 6. You have done very well in therapy and had made great progress but, you need continued therapy to get you as close as possible to your level of function prior to the stroke........the brain heals slowly and I suspect you will continue to make progress. Keep doing the exercises given to you by the therapists once a day. Do not miss any of your medications or doctor's appts. In addition to follow up with Dr. Byrne and cardiology you will need to follow up with a neurologist to make sure you are doing everything possible to prevent another stroke. 7. The last thing is that you have anemia or a low blood count and you are iron deficient. To become iron deficient you usually have a chronic source of blood loss. This could be due to donating blood IF your body is not absorbing iron from the GI tract. If you chronically take a medication to suppress the acid production in the stomach because of reflux/heartburn or ulcers in the stomach this can suppress the absorption of iron in the GI tract. Acid is needed to absorb iron. For this reason we placed you on an iron supplement once a day and you should always take this with a meal (because your stomach produces acid when you eat) and take a Vitamin C (ascorbic acid) at the same time. You should have a repeat iron panel and a blood count in 4-6 weeks and I recommend you discuss this with Dr. Byrne. We checked your BM for blood while you were in rehab and and there is no blood in the stool. 8. If you have any questions after you leave rehab [facility] please do not hesitate to call me. Office: [phone] . Discharge Orders/Prescriptions Prescriptions: New lisinopril 20 mg Tablet 20 mg PO DAILY Qty: 30 RF: 0 ascorbic acid (vitamin C) 500 mg Tablet 1,000 mg PO 1200 Qty: 0 RF: 0 doxepin 25 mg Capsule 25 mg PO 2100 Qty: 30 RF: 0 ferrous sulfate [FeroSul] 325 mg (65 mg iron) Tablet 325 mg PO DAILY@1200 Qty: 30 RF: 0 pantoprazole 20 mg Tablet,Delayed Release (Dr/Ec) 20 mg PO BID Qty: 60 RF: 0 Continued gabapentin 300 MG capsule 300 mg PO QHS RF: 0 acetaminophen 325 mg Tablet 650 mg PO Q4H PRN (Reason: Pain) RF: 0 aspirin 81 mg Tablet 81 mg PO DAILY RF: 0 atorvastatin 80 mg Tablet 80 mg PO QHS Qty: 30 RF: 0 clopidogrel [Plavix] 75 mg Tablet 75 mg PO DAILY Qty: 30 RF: 0 Discontinued lisinopril 10 mg Tablet 10 mg PO DAILY RF: 0 heparin (porcine) 5,000 unit/mL Solution 5,000 unit SUBCUT Q12H RF: 0 Other Ambulatory Orders: 30-Day Event Recorder (Routine) Location: None Selected Ordered By: Dr. Puja Marie Referrals / Follow Up: 30 day monitor [Other] Jenny Byrne MD [Primary Care Provider] - 05/07/21 2:00 pm Olegario Marsh MD [STAFF PHYSICIAN] - 07/06/21 9:00 am (Neurologist ) Disposition Disposition (needs filled in before D/C Order can be placed): Home, Self Care Charges/Coding Visit Charges Inpatient E&M: 74339 Disch Hosp
[2021-05-04] MEDS: Ferrous Sulfate 325 MG Tablet PO (11:26)
[2021-05-04] MEDS: Ascorbic Acid 500 MG Tablet 1000 MG PO (11:26)
[2021-05-04 12:30] VITALS: BMI 33.9
--- NOTE | 2021-05-04 14:34 | NURSING ---
Discharged home with a friend. Discharged instructions, medications and appointments reviewed with pt, denies questions or concerns
[2021-05-04 14:35] VITALS: BP 117/69; PULSE 78; RESP 18; TEMP 36.4; O2SAT 98
== END 2021-05-04 13:30 | disposition home or self-care (01) | DRG 57 ==
PROVIDERS: Admitting Provider Internal Medicine; PCP Internal Medicine; Visit Provider Internal Medicine
DX: I69.351 Hemiplegia and hemiparesis following cerebral infarction affecting right dominant side (principal); B02.9 Zoster without complications; D50.9 Iron deficiency anemia, unspecified; G62.9 Polyneuropathy, unspecified; I10 Essential (primary) hypertension; K21.9 Gastro-esophageal reflux disease without esophagitis; G47.33 Obstructive sleep apnea (adult) (pediatric); E78.5 Hyperlipidemia, unspecified; I69.322 Dysarthria following cerebral infarction; I69.392 Facial weakness following cerebral infarction; I69.319 Unspecified symptoms and signs involving cognitive functions following cerebral infarction; I69.320 Aphasia following cerebral infarction; E66.9 Obesity, unspecified; Z87.891 Personal history of nicotine dependence; Z68.33 Body mass index [BMI] 33.0-33.9, adult; Q65.89 Other specified congenital deformities of hip; Z79.899 Other long term (current) drug therapy; Z79.02 Long term (current) use of antithrombotics/antiplatelets; Z79.01 Long term (current) use of anticoagulants; Z79.82 Long term (current) use of aspirin
CPT/HCPCS: 36415; 80048; 80053; 81001; 82274; 82728; 83540; 83550; 83735; 84100; 85014; 85018; 85025; 92507; 92526; 92610; 94762; 96125; 97032; 97110; 97112; 97116; 97129; 97130; 97140; 97162; 97166; 97530; 97535; 97802; 99251; G0463

== ENCOUNTER → 2021-07-07 | Outpatient (CLI) | payer MEDICARE, SELFPAY ==
[2021-07-07 13:51] LABS: Anion Gap 6 (5-15); BUN 12 mg/dL (7-18); BUN/Creat Ratio 14.5 RATIO (10-20); Calcium,Total 9.5 mg/dL (8.5-10.1); Chloride 106 mmol/L (98-107); Creatinine, Serum 0.83 mg/dL (0.70-1.30); EST Glomerular Filtration Rate 100 mL/min (>60); Est Glom Filt Rate - Afr Amer 121 mL/min (>60); Glucose 105 mg/dL (74-106); Potassium 4.1 mmol/L (3.5-5.1); Sodium Level 139 mmol/L (136-145)
== END | disposition home or self-care (01) ==
PROVIDERS: PCP Internal Medicine; Referring Provider Internal Medicine Cardiovascular Disease; Visit Provider Internal Medicine Cardiovascular Disease
DX: Z86.73 Personal history of transient ischemic attack (TIA), and cerebral infarction without residual deficits (principal)
CPT/HCPCS: 36415; 80048

== ENCOUNTER 2021-07-16 06:48 | Day surgery (SDC) | payer MEDICARE, SELFPAY ==
[2021-07-15 08:37] VITALS: BMI 27.4
--- NOTE | 2021-07-19 10:47 | CL.IE_ITS ---
Patient: OLEGARIO BERGER Study Date: 07/16/2021 Performing: Zac Silva MD : 1960 Age: 60 Gender: male PROCEDURES PERFORMED [id number])INSERTION OF LOOP RECORDER INDICATIONS Cryptogenic stroke PROCEDURE DETAILS The patient was brought to the Catheterization Lab in the postabsorptive nonsedated state. [facility] consent was obtained prior to the procedure. Incision was made to the left upper chest. ICM Loop Recorder was inserted. The patient tolerated the procedure well. Estimated Blood Loss: 2 ml's IMPLANTED / EX-PLANTED DEVICES IMPLANTED DEVICE(S): ICM Loop Recorder - Snuff Drier: [employer], Model # [id number] , Serial # [id number] DEVICE PARAMETERS CONCLUSIONS / RECOMMENDATIONS Device Conclusions: Successful implantation of a patient activated loop recorder. Device Recommendations: Follow up with Primary Care Physician PROCEDURE MEDICATIONS Fentanyl 50 mcg IV Versed 1 mg IV Oxygen: 2 L/min via nasal cannula Clindamycin 900 mg IV 07/16/2021 08:54:19 Signed By Zac Silva MD On 07/19/2021 10:46:11 AM Zac Silva MD
== END 2021-07-16 10:25 | disposition home or self-care (01) ==
LOC: CLSP 06:50
PROVIDERS: PCP Internal Medicine; Referring Provider Internal Medicine Cardiovascular Disease; Visit Provider Internal Medicine Cardiovascular Disease
DX: I63.9 Cerebral infarction, unspecified (principal); Z86.73 Personal history of transient ischemic attack (TIA), and cerebral infarction without residual deficits; Z79.82 Long term (current) use of aspirin; Z79.899 Other long term (current) drug therapy; Z87.891 Personal history of nicotine dependence
CPT/HCPCS: 33285; 99152; J7030

== ENCOUNTER 2021-11-24 07:46 | Outpatient (CLI) | payer MEDICARE, SELFPAY ==
--- NOTE | 2021-11-24 07:46 | MRI_ITS ---
HISTORY: Positive family history of cerebral aneurysm. TECHNIQUE: Routine [place]/brain 3D time of flight MR angiogram protocol was obtained without intravenous contrast. 3D reconstructions were reviewed. 193 images. COMPARISON: None FINDINGS: ICAs: No significant stenosis at the intracranial/visualized segments. ACAs: No significant stenosis at the visualized segments. MCAs: No significant stenosis at the visualized segments. guide alpine: No significant stenosis at the visualized segments. BASILAR ARTERY: No significant stenosis. VERTEBRAL ARTERIES: No significant stenosis at the intradural/visualized segments. No evidence of intracranial aneurysm or vascular malformation. MRI/MRA Head ONLY without Contrast IMPRESSION: No evidence for focal vascular abnormality in the [place] region. Electronically Signed: Laureen Bhatti MD at 11:05 EDT ,
== END 2021-11-24 23:59 | disposition home or self-care (01) ==
LOC: MRI 07:46
PROVIDERS: PCP Internal Medicine; Visit Provider Psychiatry & Neurology Neurology
DX: Z86.73 Personal history of transient ischemic attack (TIA), and cerebral infarction without residual deficits (principal); Z82.49 Family history of ischemic heart disease and other diseases of the circulatory system
CPT/HCPCS: 70544

== ENCOUNTER → 2022-05-12 | Outpatient (CLI) | payer MEDICARE, SELFPAY ==
--- NOTE | 2022-05-12 12:49 | CDU_ITS ---
Reason For Study: Carotid Stenosis Rt. Velocities/BP Lt. Velocities/BP Prox CCA 76.7/15.0 cm/sec. Prox CCA 90.8/17.1 cm/sec. Mid CCA 87.6/21.2 cm/sec. Mid CCA 76.9/13.0 cm/sec. Dist CCA 57.2/11.9 cm/sec. Dist CCA 54.4/14.7 cm/sec. Prox ICA 50.2/14.5 cm/sec. Prox ICA 74.3/19.3 cm/sec. Mid ICA 51.1/18.0 cm/sec. Mid ICA 85.3/22.6 cm/sec. Dist ICA 81.8/17.6 cm/sec. Dist ICA 68.1/24.6 cm/sec. Rt. ICA/CCA = 0.9. Lt. ICA/CCA = 1.1. Prox ECA 107.0/15.7 cm/sec. Prox ECA 78.7/13.8 cm/sec. Rt. Vert. 30.6/7.3 cm/sec. Lt. Vert. 27.0/5.7 cm/sec. Right Extracranial There is heterogeneous, irregular atherosclerotic plaque noted in the right common carotid artery. The atherosclerotic plaque causes acoustic shadowing. There is heterogeneous, irregular atherosclerotic plaque noted in the right internal carotid artery. The atherosclerotic plaque causes acoustic shadowing. There is heterogeneous, irregular atherosclerotic plaque noted in the right external carotid artery. Antegrade flow is noted in the right vertebral artery. Left Extracranial There is homogeneous, smooth atherosclerotic plaque noted in the left common carotid artery. There is heterogeneous, irregular atherosclerotic plaque noted in the left internal carotid artery. The atherosclerotic plaque causes acoustic shadowing. There is heterogeneous, irregular atherosclerotic plaque noted in the left external carotid artery. Antegrade flow is noted in the left vertebral artery. Procedure Carotid Duplex [id number]. This is a Carotid Duplex examination using B-mode, color flow and specral Doppler. The exam was diagnostic. Exam performed in department. VL/Carotid Duplex Ultrasound Interpretation Summary Irregular calcific plaque at the proximal right internal carotid artery with le ss than 50% stenosis Less than 50% stenosis right external carotid artery Irregular calcific plaque at the proximal left internal carotid artery with les s than 50% stenosis Less than 50% stenosis left external carotid artery Patent and antegrade vertebral arteries bilaterally Ordering Physician: Ryan Marsh Referring Physician: Jenny Byrne M.D. Performed By: Sukh Collazo RVT
== END | disposition home or self-care (01) ==
LOC: CVS 12:49
PROVIDERS: PCP Internal Medicine; Referring Provider Psychiatry & Neurology Neurology; Visit Provider Psychiatry & Neurology Neurology
DX: I65.29 Occlusion and stenosis of unspecified carotid artery (principal); Z86.73 Personal history of transient ischemic attack (TIA), and cerebral infarction without residual deficits
CPT/HCPCS: 93880

== ENCOUNTER → 2023-05-24 | Outpatient (CLI) | payer MEDICARE, SELFPAY ==
--- NOTE | 2023-05-24 09:46 | CDU_ITS ---
Reason For Study: Carotid Stenosis Rt. Velocities/BP Lt. Velocities/BP Prox CCA 96/9 cm/sec. Prox CCA 78/12 cm/sec. Mid CCA 83/14 cm/sec. Mid CCA 72/15 cm/sec. Dist CCA 60/13 cm/sec. Dist CCA 57/16 cm/sec. Prox ICA 70/12 cm/sec. Prox ICA 77/16 cm/sec. Mid ICA 73/18 cm/sec. Mid ICA 81/22 cm/sec. Dist ICA 83/20 cm/sec. Dist ICA 95/20 cm/sec. Rt. ICA/CCA = 1.0. Lt. ICA/CCA = 1.3. Prox ECA 106/14 cm/sec. Prox ECA 97/16 cm/sec. Rt. Vert. 35/8 cm/sec. Lt. Vert. 33/9 cm/sec. Right Extracranial There is heterogeneous, irregular atherosclerotic plaque noted in the right common carotid artery. There is heterogeneous, irregular atherosclerotic plaque noted in the right internal carotid artery. There is heterogeneous, irregular atherosclerotic plaque noted in the right external carotid artery. Antegrade flow is noted in the right vertebral artery. Left Extracranial There is heterogeneous, irregular atherosclerotic plaque noted in the left common carotid artery. There is heterogeneous, irregular atherosclerotic plaque noted in the left internal carotid artery. There is heterogeneous, irregular atherosclerotic plaque noted in the left external carotid artery. Antegrade flow is noted in the left vertebral artery. Procedure Carotid Duplex [id number]. This is a Carotid Duplex examination using B-mode, color flow and specral Doppler. Exam performed in department. VL/Carotid Duplex Ultrasound Interpretation Summary Mild (<50%) stenosis right extracranial internal carotid. Mild (<50%) stenosis left extracranial internal carotid. Patent and antegrade vertebrals bilaterally. Ordering Physician: Ryan Marsh Referring Physician: Jenny Byrne Performed By: Leeann Rae, KASSANDRACS, RVT
== END | disposition home or self-care (01) ==
LOC: CVS 09:46
PROVIDERS: PCP Internal Medicine; Referring Provider Psychiatry & Neurology Neurology; Visit Provider Psychiatry & Neurology Neurology
DX: R29.810 Facial weakness (principal); I65.29 Occlusion and stenosis of unspecified carotid artery
CPT/HCPCS: 93880

== ENCOUNTER → 2024-08-20 | Outpatient (CLI) | payer MEDICARE, SELFPAY ==
--- NOTE | 2024-08-20 09:49 | ADBUE_ITS ---
Reason For Study Reason For Study: Unequal blood pressures RIGHT LEFT Right Subclavian velocity = 138.9 cm/sec. Left Subclavian velocity = 134.2 cm/sec. Right Axillary velocity = 90.6 cm/sec. Left Axillary velocity = 99.5 cm/sec. Right Brachial velocity = 127.1 cm/sec. Left Brachial velocity = 108.6 cm/sec. Right Radial velocity = 130.6 cm/sec. Left Radial velocity = 139.5. cm/sec. Right Ulnar velocity = 92.3 cm/sec. Left Ulnar velocity = 106.7 cm/sec. Arm Seg Pressures Rt Brachial pressure = 140/72 mmHg. Lt Brachial pressure = 128/74 mmHg. VL/US Art Duplex Bilat Up Ext Interpretation Summary Bilateral upper extremity arteries patent with normal velocities and waveforms, no evidence of stenosis. Ordering Physician: Yesi Morgan Referring Physician: Jenny Byrne M.D. Performed By: Adrienne Gray RVT
== END | disposition home or self-care (01) ==
LOC: CVS 09:46
PROVIDERS: PCP Internal Medicine; Referring Provider Nurse Practitioner Gerontology; Visit Provider Nurse Practitioner Gerontology
DX: G45.8 Other transient cerebral ischemic attacks and related syndromes (principal)
CPT/HCPCS: 93930